=== PATIENT | female | born 1970 | race Caucasian/White ===

== ENCOUNTER 2016-07-18 15:23 | Emergency (ER) | payer SELFPAY ==
[2016-07-18 15:57] VITALS: BP 123/70
--- NOTE | 2016-07-18 17:34 | UC ---
Hand/Wrist HPI - HPI Summary HPI Summary: 3 days ago pt was screwing cap onto laboratory equipment using a strong bean dumper and felt a twinge in her palm near the base of her R thumb. Since then has had a mild bruised sensation in the soft area between her R thumb and her R hand and marked swelling. Denies any weakness or pain in thumb joint or with thumb movement. - History Of Current Complaint Chief Complaint: UCUpperExtremity Stated Complaint: HAND,THUMB INJURY Time Seen by Provider: 07/18/16 16:35 Hx Obtained From: Patient ?: No Onset/Duration: Sudden Onset, Still Present Severity Initially: Mild Severity Currently: Mild Character Of Pain: Dull, Aching Aggravating Factor(s): Other - pressing on area Associated Signs And Symptoms: Positive: Swelling Related History: Dominant Hand Right - Allergies/Home Medications Allergies/Adverse Reactions: Allergies Allergy/AdvReac Type Severity Reaction Status Date / Time Sulfa Drugs Allergy Severe Rash Verified 07/18/16 15:58 Amoxicillin [From Augmentin] Allergy Unknown See Comment Verified 07/18/16 15:58 Clavulanic Acid Allergy Unknown See Comment Verified 07/18/16 15:58 [From Augmentin] Gluten Meal AdvReac Severe See Comment Verified 07/18/16 15:58 PMH/Surg Hx/FS Hx/Imm Hx Endocrine History Of: Denies: Diabetes, Thyroid Disease Cardiovascular History Of: Denies: Cardiac Disorders, Hypertension, Pacemaker/ICD, Congestive Heart Failure Respiratory History Of: Denies: COPD, Asthma GI/ History Of: Denies: Ulcer, Renal Disease - Surgical History Surgical History: Yes Surgery Procedure, Year, and Place: C-SECT X 3, LEFT KN, ABD LAP, OOPHRECTOMY - Family History Known Family History: Positive: Unknown - adopted - Social History Occupation: Employed Full-time Alcohol Use: Rare Substance Use Type: None Smoking Status (MU): Never Smoked Tobacco Have You Smoked in the Last Year: No - Immunization History Most Recent Influenza Vaccination: 2014 Most Recent Pneumonia Vaccination: 2008 Review of Systems Constitutional: Negative Skin: Negative Eyes: Negative ENT: Negative Respiratory: Negative Cardiovascular: Negative Gastrointestinal: Negative Genitourinary: Negative Motor: Negative Neurovascular: Negative Musculoskeletal: Edema - R hand Neurological: Negative Psychological: Negative All Other Systems Reviewed And Are Negative: Yes Physical Exam Triage Information Reviewed: Yes Appearance: Well-Appearing, No Pain Distress, Well-Nourished Vital Signs: Initial Vital Signs Temp 98.8 F 07/18/16 15:51 Pulse 76 07/18/16 15:51 Resp 16 07/18/16 15:51 BP 123/70 07/18/16 15:51 Pulse Ox 100 07/18/16 15:51 Vital Signs Reviewed: Yes Eye Exam: Normal, Other - PERRL Eyes: Positive: Conjunctiva Clear ENT Exam: Normal ENT: Positive: Normal ENT inspection, Hearing grossly normal, Pharynx normal, TMs normal. Negative: Tonsillar swelling Dental Exam: Other - dentures Neck exam: Normal Respiratory Exam: Normal Respiratory: Positive: Chest non-tender, Lungs clear, Normal breath sounds, No respiratory distress, No accessory muscle use Cardiovascular Exam: Normal Cardiovascular: Positive: RRR, No Murmur Musculoskeletal Exam: Other - Full bean dumper and thumb opposition strength in R hand. No thumb ligament instability noted. Musculoskeletal: Positive: Strength Intact, ROM Intact Neurological Exam: Normal Neurological: Positive: Alert Psychological Exam: Normal Skin Exam: Normal Hand/Wrist Course/Dx - Differential Dx/Diagnosis Provider Diagnoses: R hand soft tissue injury Discharge - Discharge Plan Condition: Stable Disposition: HOME Patient Education Materials: Swollen Joint (ED) Forms: *Work Release Additional Instructions: As we discussed, I am not certain what has caused the swelling in your hand. However, the lack of pain and your good strength is reassuring to me that you don't have a serious injury. Most soft-tissue problems will get better with time and protection, so try wearing the splint for the next week (you can take it off sooner if you are completely resolved). If you still have marked swelling , or if you have worsening symptoms, please arrange for follow-up with the orthopedics office listed here.
== END 2016-07-18 17:35 | disposition home or self-care (01) ==
LOC: UCEAST 15:23
DX: S69.91XA Unspecified injury of right wrist, hand and finger(s), initial encounter (principal); X58.XXXA Exposure to other specified factors, initial encounter; Y93.89 Activity, other specified; Y92.9 Unspecified place or not applicable; Z88.1 Allergy status to other antibiotic agents; Z88.2 Allergy status to sulfonamides
CPT/HCPCS: 99212; G0463

== ENCOUNTER 2017-01-08 16:41 | Emergency (ER) | payer BC, OTHER ==
[2017-01-08 16:48] VITALS: BP 110/69
--- NOTE | 2017-01-08 18:18 | UC ---
Ear Complaint HPI - HPI Summary HPI Summary: This is a 46 yo female with c/o R ear pain that became more severe this am, but sxs have been present for ~3d. She has assoc ST and neck pain with nasal congestion. She has also been hoarse for the last day or so. She denies cough or SOB. Mild nausea, but no v/d. No fevers. She has been using benadryl at night without relief. - History of Current Complaint Chief Complaint: UCGeneralIllness Stated Complaint: EAR AND NECK PAIN - Allergies/Home Medications Allergies/Adverse Reactions: Allergies Allergy/AdvReac Type Severity Reaction Status Date / Time Sulfa Drugs Allergy Severe Rash Verified 01/08/17 16:49 Amoxicillin [From Augmentin] Allergy Unknown See Comment Verified 01/08/17 16:49 Clavulanic Acid Allergy Unknown See Comment Verified 01/08/17 16:49 [From Augmentin] Gluten Meal AdvReac Severe See Comment Verified 01/08/17 16:49 PMH/Surg Hx/FS Hx/Imm Hx Previously Healthy: No - chronic pain - Surgical History Surgical History: Yes Surgery Procedure, Year, and Place: C-SECT X 3, LEFT KN, ABD LAP, OOPHRECTOMY - Family History Known Family History: Positive: Unknown - adopted - Social History Alcohol Use: None Substance Use Type: None Smoking Status (MU): Never Smoked Tobacco Have You Smoked in the Last Year: No - Immunization History Most Recent Influenza Vaccination: 2014 Most Recent Pneumonia Vaccination: 2008 Review of Systems Constitutional: Negative Skin: Negative Eyes: Negative ENT: Sore Throat, Ear Ache, Sinus Congestion Respiratory: Negative Cardiovascular: Negative Gastrointestinal: Negative Genitourinary: Negative Motor: Negative Neurovascular: Negative Musculoskeletal: Negative Neurological: Negative Psychological: Negative Is Patient Immunocompromised?: No All Other Systems Reviewed And Are Negative: Yes Physical Exam Triage Information Reviewed: Yes Appearance: Ill-Appearing - mildly Vital Signs: Initial Vital Signs Temp 97.9 F 01/08/17 16:44 Pulse 95 01/08/17 16:44 Resp 18 01/08/17 16:44 BP 110/69 01/08/17 16:44 Pulse Ox 98 01/08/17 16:44 ENT: Positive: Pharynx normal. Negative: TMs normal - serous effusion with mild retraction and some scarring noted, TM red, Tonsillar swelling, Tonsillar exudate Dental: Positive: Percussion Tenderness @ - mild TTP over R maxillary sinus Neck: Positive: Supple, Enlarged Nodes @ - R anterior cervical LAD Respiratory: Positive: Lungs clear, Normal breath sounds. Negative: Crackles, Rhonchi, Wheezing Cardiovascular: Positive: RRR, No Murmur Abdomen Description: Positive: Nontender, Soft Musculoskeletal Exam: Normal Neurological: Positive: Alert Psychological Exam: Normal Psychological: Positive: Normal Response To Family Skin Exam: Normal Skin: Negative: rashes Ear Complaint Course/Dx - Course Course Of Treatment: This is a 46 yo female with c/o R ear pain with assoc ST and congestion. Noted serous effusion and nasal congestion. Treat for a viral syndrome, recommend decongestant use. - Differential Dx/Diagnosis Differential Diagnosis/HQI/PQRI: Otitis Externa, Otitis Media, Pharyngitis, URI Provider Diagnoses: 1. Serous otitis media. 2. Viral URI Discharge - Discharge Plan Condition: Stable Disposition: HOME Patient Education Materials: Serous Otitis Media (ED) Referrals: Christopher Ramey DO [Primary Care Provider] - If Needed Additional Instructions: Instructions: 1. Cont benadryl at night, use Sudafed for daytime use 2. Use Afrin nasal spray for additional nasal decongestion 3. Use ibuprofen and/or tylenol for pain relief
== END 2017-01-08 18:16 | disposition home or self-care (01) ==
LOC: UCEAST 16:41
DX: H65.90 Unspecified nonsuppurative otitis media, unspecified ear (principal); J06.9 Acute upper respiratory infection, unspecified; G89.29 Other chronic pain; Z88.3 Allergy status to other anti-infective agents; Z88.2 Allergy status to sulfonamides
CPT/HCPCS: 99211; G0463

== ENCOUNTER 2017-02-09 09:06 | Emergency (ER) | payer SELFPAY ==
[2017-02-09 09:18] VITALS: BP 123/77
[2017-02-09] MEDS ORDERED: Ketorolac INJ* 30 MG/ML 1 ML VIAL IM ONE (09:32)
--- NOTE | 2017-02-09 09:41 | UC ---
Hand/Wrist HPI - HPI Summary HPI Summary: 46 yo female with burn to right index finger at work this AM (about 8:30) when she grabbed a hot plate She is right handed unsure of last tetanus pain 12/30 if not cooled - History Of Current Complaint Chief Complaint: UCBurn Stated Complaint: BURN TO FINGER Time Seen by Provider: 02/09/17 09:26 Hx Obtained From: Patient Onset/Duration: Sudden Onset Severity Initially: Severe Severity Currently: Severe Pain Intensity: 10 Pain Scale Used: 0-10 Numeric Character Of Pain: Burning Alleviating Factor(s): Ice Associated Signs And Symptoms: Positive: Swelling, Redness Related History: Occupational Injury, Dominant Hand Right - Allergies/Home Medications Allergies/Adverse Reactions: Allergies Allergy/AdvReac Type Severity Reaction Status Date / Time Sulfa Drugs Allergy Severe Rash Verified 02/09/17 09:19 Amoxicillin [From Augmentin] Allergy Unknown See Comment Verified 02/09/17 09:19 Clavulanic Acid Allergy Unknown See Comment Verified 02/09/17 09:19 [From Augmentin] Gluten Meal AdvReac Severe See Comment Verified 02/09/17 09:19 Home Medications: Home Medications oxyCODONE SR TAB(*) [Oxycontin 10 mg (*)] 15 mg PO Q12HR 02/09/17 [History Confirmed 02/09/17] PMH/Surg Hx/FS Hx/Imm Hx Previously Healthy: Yes - Chronic pain - on daily opiates GI/ History: Other Other GI/ History: celiac disease - Surgical History Surgical History: Yes Surgery Procedure, Year, and Place: C-SECT X 3, LEFT KN, ABD LAP, OOPHRECTOMY - Family History Known Family History: Positive: Unknown - adopted - Social History Alcohol Use: Rare Substance Use Type: None Smoking Status (MU): Never Smoked Tobacco Have You Smoked in the Last Year: No - Immunization History Most Recent Influenza Vaccination: 2016 Most Recent Tetanus Shot: unsure Most Recent Pneumonia Vaccination: 2009 Review of Systems Constitutional: Negative Skin: Negative Eyes: Negative ENT: Negative Respiratory: Negative Cardiovascular: Negative Gastrointestinal: Negative Genitourinary: Negative Motor: Negative Neurovascular: Negative Musculoskeletal: Negative Neurological: Negative Psychological: Negative Is Patient Immunocompromised?: No All Other Systems Reviewed And Are Negative: Yes Physical Exam Triage Information Reviewed: Yes Appearance: Well-Appearing, Well-Nourished, Pain Distress Vital Signs: Initial Vital Signs Temp 98.1 F 02/09/17 09:13 Pulse 95 02/09/17 09:13 Resp 16 02/09/17 09:13 BP 123/77 02/09/17 09:13 Pulse Ox 100 02/09/17 09:13 Vital Signs Reviewed: Yes Eyes: Positive: Conjunctiva Clear ENT: Positive: Hearing grossly normal. Negative: Nasal congestion, Nasal drainage, Trismus, Muffled voice, Hoarse voice, Dental tenderness Neck: Positive: Supple, Nontender Respiratory: Positive: Lungs clear, Normal breath sounds, No respiratory distress Cardiovascular: Positive: RRR, No Murmur Musculoskeletal: Positive: ROM Intact, Edema @ Neurological: Positive: Alert Psychological Exam: Normal Skin: Positive: Other - see image Hand/Wrist Course/Dx - Differential Dx/Diagnosis Provider Diagnoses: second degree burnett right index finger Discharge - Discharge Plan Condition: Stable Disposition: HOME Patient Education Materials: Second Degree Burn (ED) Forms: *Work Release Referrals: Christopher Ramey DO [Primary Care Provider] - Additional Instructions: when you get home immerse finger in cool water periodically until burn abates then use a non stick dressing recheck in AM to re assess extent of burn and work status advil or aleve Images Hands: 1 - second degree burn/blister intact 2 - second degree burn/blister intact
[2017-02-09] MEDS ORDERED: Tetan/Diph/Pertus SYR(Tdap)* 0.5 ML SYR(BOOSTRIX) use SYR IM ONE (09:42)
== END 2017-02-09 10:00 | disposition home or self-care (01) ==
LOC: UCEAST 09:06
DX: T23.221A Burn of second degree of single right finger (nail) except thumb, initial encounter (principal); T31.0 Burns involving less than 10% of body surface; X15.2XXA Contact with hotplate, initial encounter; Y93.9 Activity, unspecified; Y92.9 Unspecified place or not applicable; Y99.0 Civilian activity done for income or pay
CPT/HCPCS: 90472; 90715; 96372; 99211; G0463; J1885

== ENCOUNTER 2017-02-10 07:10 | Emergency (ER) | payer SELFPAY ==
[2017-02-10 07:23] VITALS: BP 105/70
[2017-02-10] MEDS ORDERED: Ketorolac INJ* 60 MG/2 ML VIAL IM ONE (08:01)
--- NOTE | 2017-02-15 22:30 | UC ---
Abel Rodriguez Gabriel, scribed for Yaz Talbert MD on 02/10/17 at 0757 . HPI BURN - HPI Summary HPI Summary: This patient is a 46 year old F presenting to [facility] with a chief complaint of a burnt finger since yesterday. The burn is on her right hand which is the patients dominate hand. Thermal burn 2/2 hot plate at work. Returns for reevaluation and work note. Expresses concern about the ability to return to work with full use of finger while burn hurts this much. No p/d/w. No drainage. Reports that ketoralac injection helped, and would like it again if possible. No GI issues reported. - History of Current Complaint Chief Complaint: UCBurn Stated Complaint: BURN Time Seen by Provider: 02/10/17 07:51 Hx Obtained From: Patient Occurred: Days Ago - 1 Location: RUE - finger Alleviating Factor(s): Cool Soaks Occupational Injury: Yes - Allergy/Home Medications Allergies/Adverse Reactions: Allergies Allergy/AdvReac Type Severity Reaction Status Date / Time Sulfa Drugs Allergy Severe Rash Verified 02/10/17 07:23 Amoxicillin [From Augmentin] Allergy Unknown See Comment Verified 02/10/17 07:23 Clavulanic Acid Allergy Unknown See Comment Verified 02/10/17 07:23 [From Augmentin] Gluten Meal AdvReac Severe See Comment Verified 02/10/17 07:23 PMH/Surg Hx/FS Hx/Imm Hx Previously Healthy: Yes - Surgical History Surgical History: Yes Surgery Procedure, Year, and Place: C-SECT X 3, LEFT KN, ABD LAP, OOPHRECTOMY - Family History Known Family History: Positive: Unknown - Social History Alcohol Use: Rare Substance Use Type: None Smoking Status (MU): Never Smoked Tobacco Have You Smoked in the Last Year: No - Immunization History Most Recent Influenza Vaccination: 2016 Most Recent Tetanus Shot: unsure Most Recent Pneumonia Vaccination: 2009 Review of Systems Constitutional: Negative Skin: Other - burn on hand Eyes: Negative ENT: Negative Respiratory: Negative Cardiovascular: Negative Gastrointestinal: Negative Genitourinary: Negative Motor: Negative Neurovascular: Negative Musculoskeletal: Negative Neurological: Negative Psychological: Negative Is Patient Immunocompromised?: Yes All Other Systems Reviewed And Are Negative: Yes - Comments Additional Review of Systems Comments: See HPI Physical Exam Triage Information Reviewed: Yes Appearance: Well-Appearing, Other: - NAD Vital Signs: Initial Vital Signs Temp 97.7 F 02/10/17 07:18 Pulse 91 02/10/17 07:18 Resp 18 02/10/17 07:18 BP 105/70 02/10/17 07:18 Pulse Ox 99 02/10/17 07:18 Eye Exam: Normal ENT Exam: Normal Neck exam: Normal Respiratory Exam: Normal Respiratory: Positive: Other: - no dyspnea, no tachypnea, normal respiratory rate Cardiovascular Exam: Normal Cardiovascular: Positive: RRR, Other: - good general skin color, good capillary refill Abdominal Exam: Normal Abdomen Description: Positive: Nontender, No Organomegaly, Soft Bowel Sounds: Positive: Present Musculoskeletal Exam: Normal Musculoskeletal: Positive: Strength Intact Neurological Exam: Normal Neurological: Positive: Other: - nonfocal, grossly intact Psychological Exam: Normal - Normal: conversing easily and appropriately Skin Exam: Other - Burn on radial part of right finger that is 4 cm long and 1 cm wide Skin: Positive: Other - no visible or reported rash Burn Calculation - [place] Formula for Fluid Resuscitation Weight: 83.915 kg 24 -Hour Fluid Replacement: 0.0 Course/Dx Burn - Course Course Of Treatment: Reviewed wound care. D/w pt the need for f/u, laura if worse. Ketoralac x 1 here. Questions as posed answered to the best of my ability. - Diagnoses Clinic Provider Diagnoses: second degree finger burn, see above for details Discharge - Discharge Plan Condition: Stable Disposition: HOME Patient Education Materials: Second Degree Burn (ED) Forms: *Work Release Referrals: Christopher Ramey DO [Primary Care Provider] - Additional Instructions: Follow up with your primary care physician, per routine. Seek medical attention for worse or new problems in the meantime. Avoid astringents (no hydrogen peroxide, rubbing alcohol, avoid repeated use of neosporin, avoid inducing a "cold burn") The documentation as recorded by the Abel pedroza Gabriel accurately reflects the service I personally performed and the decisions made by me, Yaz Talbert MD.
== END 2017-02-10 08:17 | disposition home or self-care (01) ==
LOC: UCEAST 07:10
DX: T23.221A Burn of second degree of single right finger (nail) except thumb, initial encounter (principal); T31.0 Burns involving less than 10% of body surface; X15.2XXA Contact with hotplate, initial encounter; Y93.9 Activity, unspecified; Y92.89 Other specified places as the place of occurrence of the external cause; Y99.0 Civilian activity done for income or pay; Z88.1 Allergy status to other antibiotic agents; Z88.2 Allergy status to sulfonamides
CPT/HCPCS: 96372; 99211; G0463; J1885

== ENCOUNTER 2017-04-19 12:38 | Emergency (ER) | payer SELFPAY ==
[2017-04-19 14:12] VITALS: BP 131/84
--- NOTE | 2017-04-19 15:03 | UC ---
Throat Pain/Nasal Ramy HPI - HPI Summary HPI Summary: Pt presents with sinus pain/pressure/congestion, headache, and b/l ear pain for the last 3 days. Has been taking sudafed with no relief. Has not tried mucinex. Denies fever, chills, cough, SOB, chest pain, abdominal pain, n/v/d/c, or body aches. - History of Current Complaint Chief Complaint: UCGeneralIllness Stated Complaint: RESP COMPLAINT Time Seen by Provider: 04/19/17 15:03 Hx Obtained From: Patient Onset/Duration: Gradual Onset Severity: Mild Pain Intensity: 3 Pain Scale Used: 0-10 Numeric - Allergies/Home Medications Allergies/Adverse Reactions: Allergies Allergy/AdvReac Type Severity Reaction Status Date / Time Sulfa Drugs Allergy Severe Rash Verified 04/19/17 14:13 Amoxicillin [From Augmentin] Allergy Unknown See Comment Verified 04/19/17 14:13 Clavulanic Acid Allergy Unknown See Comment Verified 04/19/17 14:13 [From Augmentin] Gluten Meal AdvReac Severe See Comment Verified 04/19/17 14:13 Home Medications: Home Medications Pseudoephedrine HCL ER TAB* [Sudafed 12 Hour*] 1 tab PO Q12HR PRN 04/19/17 [ History Confirmed 04/19/17] PMH/Surg Hx/FS Hx/Imm Hx - Additional Past Medical History Additional PMH: Chronic pain Psychological History: Anxiety - Surgical History Surgical History: Yes Surgery Procedure, Year, and Place: C-SECT X 2, LEFT KNEE, ABD LAP, OOPHRECTOMY - Family History Known Family History: Positive: Unknown - Social History Occupation: Employed Full-time Lives: Alone Alcohol Use: Rare Substance Use Type: None Smoking Status (MU): Never Smoked Tobacco Have You Smoked in the Last Year: No - Immunization History Most Recent Influenza Vaccination: 2016 Most Recent Tetanus Shot: unsure Most Recent Pneumonia Vaccination: 2009 Review of Systems Constitutional: Negative Skin: Negative Eyes: Negative ENT: Ear Ache, Nasal Discharge, Sinus Congestion, Sinus Pain/Tenderness Respiratory: Cough Cardiovascular: Negative Gastrointestinal: Negative Neurovascular: Negative Musculoskeletal: Negative Neurological: Negative Psychological: Negative All Other Systems Reviewed And Are Negative: Yes Physical Exam Triage Information Reviewed: Yes Appearance: Well-Appearing, No Pain Distress, Well-Nourished Vital Signs: Initial Vital Signs Temp 97.1 F 04/19/17 14:07 Pulse 79 04/19/17 14:07 Resp 20 04/19/17 14:07 BP 131/84 04/19/17 14:07 Pulse Ox 100 04/19/17 14:07 Vital Signs Reviewed: Yes Eyes: Positive: Conjunctiva Clear. Negative: Conjunctiva Inflamed, Discharge ENT: Positive: Hearing grossly normal, Pharynx normal, Nasal congestion, Nasal drainage, TMs normal, Sinus tenderness, Uvula midline. Negative: Pharyngeal erythema, TM bulging, TM dull, TM red, Tonsillar swelling, Tonsillar exudate, Hoarse voice Neck: Positive: Supple, Nontender, No Lymphadenopathy Respiratory: Positive: Chest non-tender, Lungs clear, Normal breath sounds, No respiratory distress, No accessory muscle use Cardiovascular: Positive: RRR, No Murmur, Pulses Normal Neurological: Positive: Alert. Negative: Fatigued Psychological: Positive: Age Appropriate Behavior Skin: Negative: rashes Throat Pain/Nasal Course/Dx - Course Course Of Treatment: Sinusitis - Azithromycin - Differential Dx/Diagnosis Provider Diagnoses: Sinusitis Discharge - Discharge Plan Condition: Stable Disposition: HOME Prescriptions: Azithromycin TAB* [Zithromax TAB (Z-TIEN) 250 mg #6 tabs] 2 tab PO .TODAY, THEN 1 DAILY #1 tien Patient Education Materials: Sinusitis (ED) Referrals: Christopher Ramey DO [Primary Care Provider] - Additional Instructions: If you develop a fever, shortness of breath, chest pain, new or worsening symptoms - please call your PCP or go to the ED.
== END 2017-04-19 15:17 | disposition home or self-care (01) ==
LOC: UCEAST 12:38
DX: J32.9 Chronic sinusitis, unspecified (principal); G89.29 Other chronic pain; F41.9 Anxiety disorder, unspecified; Z88.2 Allergy status to sulfonamides; Z88.3 Allergy status to other anti-infective agents
CPT/HCPCS: 99212; G0463

== ENCOUNTER 2017-04-23 08:56 | Emergency (ER) | payer BC ==
[2017-04-23 09:25] VITALS: BP 113/72
[2017-04-23] MEDS ORDERED: Ketorolac INJ* 60 MG/2 ML VIAL IM ONE (09:48)
--- NOTE | 2017-04-24 18:47 | UC ---
Kev Rodriguez Nilda, scribed for Robert Garcia MD on 04/23/17 at 1027 . FLU HPI - HPI Summary HPI Summary: This patient is a 46 year old F presenting to [facility] with a chief complaint of constant flu-like symptoms for the past few days. The patient rates the pain 4/ 10 in severity. Symptoms aggravated and alleviated by nothing. Patient reports lower back pain that radiates down legs, mild headache, lightheadedness, and fatigue (sleeping for the past few days). Patient denies cough, urinary frequency, and dysuria. Pt states shes been on Zpack for sinus infection since with relief of sinus symptoms with exception of the headache. - History of Current Complaint Chief Complaint: UCGeneralIllness Stated Complaint: LIGHTHEADED, BODYACHES Time Seen by Provider: 04/23/17 09:28 Hx Obtained From: Patient Onset/Duration: Sudden Onset, Lasting Days, Still Present Severity Initially: Moderate Pain Intensity: 4 Pain Scale Used: 0-10 Numeric Associated Signs & Symptoms: Positive: Myalgia, Headache - Allergy/Home Medications Allergies/Adverse Reactions: Allergies Allergy/AdvReac Type Severity Reaction Status Date / Time MS Sulfa Drugs [Sulfa Drugs] Allergy Severe Rash Verified 04/23/17 09:25 MS Amoxicillin Allergy Unknown See Comment Verified 04/23/17 09:25 [From Augmentin] MS Clavulanic Acid Allergy Unknown See Comment Verified 04/23/17 09:25 [From Augmentin] MS Gluten Meal [Gluten Meal] AdvReac Severe See Comment Verified 04/23/17 09:25 PMH/Surg Hx/FS Hx/Imm Hx - Additional Past Medical History Additional PMH: costochondritis - Surgical History Surgical History: Yes Surgery Procedure, Year, and Place: C-SECT X 2, LEFT KNEE, ABD LAP, OOPHRECTOMY - Family History Known Family History: Positive: Unknown - pt is adopted - Social History Alcohol Use: Rare Substance Use Type: None Smoking Status (MU): Never Smoked Tobacco Have You Smoked in the Last Year: No - Immunization History Most Recent Influenza Vaccination: 2016 Most Recent Tetanus Shot: unsure Most Recent Pneumonia Vaccination: 2008 Review of Systems Constitutional: Fatigue Respiratory: Other - negative cough Genitourinary: Other - negative urinary frequency, dysuria Musculoskeletal: Other: - back pain radiating down legs Neurological: Headache, Other - lightheadedness All Other Systems Reviewed And Are Negative: Yes Physical Exam Triage Information Reviewed: Yes Vital Signs: Initial Vital Signs Temp 97.4 F 04/23/17 09:20 Pulse 82 04/23/17 09:20 Resp 18 04/23/17 09:20 BP 113/72 04/23/17 09:20 Pulse Ox 99 04/23/17 09:20 Vital Signs Reviewed: Yes - Additional Comments VITAL SIGNS: Reviewed. GENERAL: Patient is a well developed and nourished F who is lying comfortable in the stretcher. Patient is not in any acute respiratory distress. HEAD AND FACE: Normocephalic EYES: PERRLA, EOMI x 2. EARS: Hearing grossly intact. MOUTH: Oropharynx within normal limits. NECK: Supple, trachea is midline, no adenopathy, no JVD, no carotid bruit. CHEST: Symmetric, no tenderness at palpation LUNGS: Clear to auscultation bilaterally. No wheezing or crackles. CVS: Regular rate and rhythm, S1 and S2 present, no murmurs or gallops appreciated. ABDOMEN: Soft, non-tender. Bowel sounds are normal. No abdominal abnormal pulsations. EXTREMITIES: Full ROM in all major joints, no edema, no cyanosis or clubbing. Paraspinal muscle tenderness in lower spine. NEURO: Alert and oriented x 3. No acute neurological deficits. Speech is normal and follows commands. SKIN: Dry and warm Flu Course/Dx - Course Course Of Treatment: This patient is a 46 year old F presenting to [facility] with a chief complaint of constant flu-like symptoms for the past few days. The patient rates the pain 4/10 in severity. Symptoms aggravated and alleviated by nothing. Patient reports lower back pain that radiates down legs, mild headache , lightheadedness, and fatigue (sleeping for the past few days). Patient denies cough, urinal frequency, and dysuria. Pt states shes been on Zpack for sinus infection since 04/19/17 with relief of sinus symptoms with exception of the headache. Patient with multiple complaints. He has lower back pain and reports no trauma and no heavy lifting. She has no Bowel or urinary dysfunction. Pain is non radiating and she is 4/10 at . She was diagnosed with sinusitis and she finish taking Z holly. She requested a monospot test since her daughter wa diagnosed with mono. She denies any dysuria. In the UC she was given Toradol for pain. Monospot was send to the lab and it will f/u by PCP. UA was negative for UTI but had trace blood. Differential diagnosis could be and early UTI, cystitis, Kidney stone. However patient has bilateral lower back pain improved by Toradol. Rapid strep is negative and influenza A&B is negative. She will be discharged home with instruction that if pain increases she will return to the UC or go to the ED for further w/u and management. I discussed all the findings and test results with the patient and Patient was instructed to return to the UC or go to the ED if develops any fever, increase sore throat unable to swallow, drooling, unable to open their mouth, or any other symptoms. The patient understands and agrees. Plan of care was discussed with the patient and understands and agrees. All questions were answered at patient satisfaction. There were no further complaints or concerns. - Differential Dx/Diagnosis Differential Diagnosis/HQI/PQRI: Bronchitis, Influenza, Upper Respiratory Infection Provider Diagnoses: Back pain Discharge - Discharge Plan Condition: Stable Disposition: HOME Patient Education Materials: Lower Back Exercises (ED), Back Pain (ED) Referrals: No Primary Care Phys,NOPCP [Primary Care Provider] - The documentation as recorded by the Kev pedroza Nilda accurately reflects the service I personally performed and the decisions made by me, Robert Garcia MD.
== END 2017-04-23 10:53 | disposition home or self-care (01) ==
LOC: UCEAST 08:56
DX: M54.5 Low back pain (principal); R51 Headache; R42 Dizziness and giddiness; R53.83 Other fatigue; 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 junction syndrome [Tietze]; Z88.1 Allergy status to other antibiotic agents; Z88.2 Allergy status to sulfonamides
CPT/HCPCS: 36415; 81003; 86308; 86664; 86665; 87502; 87651; 96372; 99212; G0463; J1885

== ENCOUNTER 2017-04-24 07:10 | Emergency (ER) | payer BC ==
[2017-04-24] MEDS ORDERED: Ketorolac INJ* 30 MG/ML 1 ML VIAL IV ONE (07:22)
[2017-04-24] MEDS ORDERED: NS 0.9% 1000 ML* 1,000 ML IV ONE (07:22)
[2017-04-24 08:08] LABS: ABS Basophils 0 10^3/ul (0-0.2); ABS Eosinophils 0.1 10^3/ul (0-0.6); ABS Lymphocytes 2.2 10^3/ul (1.0-4.8); ABS Monocytes 0.3 10^3/ul (0-0.8); ABS Neutrophils 1.9 10^3/ul (1.5-7.7); ABS Nucleated RBC 0 10^3/ul; Eosinophil % 2.1 % (0-6); Hematocrit 38 % (35-47); Hemoglobin 12.9 g/dl (12.0-16.0); Lymphocyte % 48.6 % (25-47); Mean Corpuscular HGB Conc 34 g/dl (31-36); Mean Corpuscular Hemoglobin 30 pg (27-31); Mean Corpuscular Volume 87 fL (80-97); Mean Platelet Volume 9 um3 (7.4-10.4); Nucleated Red Blood Cells % 0; Platelet Count 183 10^3/ul (150-450); Red Blood Count 4.36 10^6/ul (4.0-5.4); Red Cell Distribution Width 14 % (10.5-15); White Blood Count 4.6 10^3/ul (3.5-10.8)
[2017-04-24 08:10] LABS: Urine Appearance Clear; Urine Blood Negative (Negative); Urine Color Yellow; Urine Ketones Negative (Negative); Urine Protein Negative (Negative); Urine Specific Gravity 1.021 (1.010-1.030); Urine Urobilinogen Negative (Negative)
--- NOTE | 2017-04-24 08:29 | RAD ---
INDICATION: Right flank pain COMPARISON: CT abdomen pelvis May 17, 2014 TECHNIQUE: Noncontrast axial source images were acquired from the level hemidiaphragms to the symphysis pubis as part of CT imaging for renal stone. Lung bases: The lung bases are clear. Liver: The liver is normal in size. Noncontrast imaging shows no evidence of a hepatic mass or ductal dilatation. Gallbladder: There are no calcified gallstones. There is no evidence of wall thickening or pericholecystic fluid.. Spleen: The spleen is normal in size. The noncontrast CT appearance is remarkable for splenic granulomas. Pancreas: Noncontrast imaging shows no pancreatic mass or ductal dilitation. Adrenal glands: No masses are identified. Kidneys/Bladder: There is a rounded renal parenchymal calcification in the lower pole of the anterior right kidney, unchanged. CT evidence of hydronephrosis. Noncontrast imaging shows no evidence of a renal mass. The bladder is unremarkable.. Adenopathy: There is no evidence of intraperitoneal or retroperitoneal adenopathy. Evaluation is limited without oral contrast. Fluid collections: There are no free or localized fluid collections. Vessels: The aorta and iliac vessels are normal in caliber. There are no significant atherosclerotic changes. The IVC appears normal Pelvic organs: The uterus and adnexa appear normal GI tract: Evaluation of the bowel is limited without oral contrast. The stomach, small bowel, and lower GI tract appear grossly normal. There are no obstructive findings. Soft tissues: No soft tissue abnormalities of the extraperitoneal abdomen or pelvis are identified. Osseous structures: There are no acute osseous findings. IMPRESSION: STABLE RENAL PARENCHYMAL CALCIFICATION. NO EVIDENCE OF OBSTRUCTIVE UROPATHY
[2017-04-24] MEDS ORDERED: Orphenadrine Citrate IV* 30 MG/ML 2 ML VIAL IV ONE (08:32)
[2017-04-24] MEDS ORDERED: Dexamethasone IV* 4 MG/ML 1 ML (4 MG) IV SLOW PU ONE (08:32)
[2017-04-24] MEDS ORDERED: Morphine INJ* 4 MG/ML 1 ML CARPUJECT IV ONE (08:32)
[2017-04-24 10:06] VITALS: BP 123/84
--- NOTE | 2017-04-24 14:46 | ED ---
Kev Rodriguez Nilda, scribed for Robert Garcia MD on 04/24/17 at 0934 . GI/ HPI - HPI Summary HPI Summary: This patient is a 46 year old F presenting to [facility] accompanied by with a chief complaint of constant R-flank pain that radiates to right lower back and RLE that worsened last night. Pt was seen at [facility] yesterday for the pain, which has worsened since. The patient rates the pain 6/10 in severity. Symptoms aggravated and alleviated by nothing. Patient reports nausea, but denies vomiting, diarrhea, and constipation. - History of Current Complaint Chief Complaint: EDFlankPain Time Seen by Provider: 04/24/17 07:22 Stated Complaint: RIGHT FLANK PAIN Hx Obtained From: Patient Onset/Duration: Started Days Ago, Still Present Timing: Constant Current Severity: Moderate Pain Intensity: 6 Location of Pain: Flank - right, radiates to right lower back and RLE Pain Characteristics: Sharp Associated Signs and Symptoms: Positive: Other: - nausea; denies vomiting, diarrhea, constipation Aggravating Factor(s): Nothing Alleviating Factor(s): Nothing - Allergy/Home Medications Allergies/Adverse Reactions: Allergies Allergy/AdvReac Type Severity Reaction Status Date / Time MS Sulfa Drugs [Sulfa Drugs] Allergy Severe Rash Verified 04/23/17 09:25 MS Amoxicillin Allergy Unknown See Comment Verified 04/23/17 09:25 [From Augmentin] MS Clavulanic Acid Allergy Unknown See Comment Verified 04/23/17 09:25 [From Augmentin] MS Gluten Meal [Gluten Meal] AdvReac Severe See Comment Verified 04/23/17 09:25 PMH/Surg Hx/FS Hx/Imm Hx Endocrine/Hematology History: Denies: Hx Diabetes, Hx Systemic Lupus Erythematosus, Hx Thyroid Disease Cardiovascular History: Denies: Hx Congestive Heart Failure, Hx Hypertension, Hx Pacemaker/ICD Respiratory History: Denies: Hx Asthma, Hx Chronic Obstructive Pulmonary Disease (COPD) GI History: Denies: Hx Ulcer History: Denies: Hx Dialysis, Hx Renal Disease Musculoskeletal History: Denies: Hx Rheumatoid Arthritis Sensory History: Denies: Hx Hearing Aid Psychiatric History: Denies: Hx Panic Disorder - Cancer History Cancer Type, 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 Hx Chemotherapy: No - Surgical History Surgery Procedure, Year, and Place: C-SECT X 2, LEFT KNEE, ABD LAP, OOPHRECTOMY Infectious Disease History: No Infectious Disease History: Denies: Hx Clostridium Difficile, Hx Hepatitis, Hx Human Immunodeficiency Virus (HIV), Hx of Known/Suspected MRSA, Hx Shingles, Hx Tuberculosis, Hx Known/ Suspected VRE, Hx Known/Suspected VRSA, History Other Infectious Disease, Traveled Outside the [place] in Last 30 Days - Family History Known Family History: Positive: None - reviewed and noncontributory - Social History Lives: With Family Alcohol Use: Occasionally Substance Use Type: Reports: Prescribed Smoking Status (MU): Never Smoked Tobacco Have You Smoked in the Last Year: No Review of Systems Positive: Nausea, Other - negative constipation. Negative: Vomiting, Diarrhea Positive: flank pain - right, radiates to right lower back and RLE All Other Systems Reviewed And Are Negative: Yes Physical Exam - Summary Physical Exam Summary: VITAL SIGNS: Reviewed. GENERAL: Patient is a well-developed and nourished female who is lying comfortable in the stretcher. Patient is not in any acute respiratory distress. HEAD AND FACE: No signs of trauma. No ecchymosis, hematomas or skull depressions. No sinus tenderness. EYES: PERRLA, EOMI x 2, No injected conjunctiva, no nystagmus. EARS: Hearing grossly intact. Ear canals and tympanic membranes are within normal limits. MOUTH: Oropharynx within normal limits. NECK: Supple, trachea is midline, no adenopathy, no JVD, no carotid bruit, no c- spine tenderness, neck with full ROM. CHEST: Symmetric, no tenderness at palpation LUNGS: Clear to auscultation bilaterally. No wheezing or crackles. CVS: Regular rate and rhythm, S1 and S2 present, no murmurs or gallops appreciated. ABDOMEN: Soft, non-tender. No signs of distention. No rebound no guarding, and no masses palpated. Bowel sounds are normal. EXTREMITIES: FROM in all major joints, no edema, no cyanosis or clubbing. Right CVA tenderness. NEURO: Alert and oriented x 3. No acute neurological deficits. Speech is normal and follows commands. SKIN: Dry and warm Triage Information Reviewed: Yes Vital Signs On Initial Exam: Initial Vitals Temp Pulse Resp BP Pulse Ox 97.4 F 86 18 144/62 98 04/24/17 07:12 04/24/17 07:12 04/24/17 07:12 04/24/17 07:12 04/24/17 07:12 Vital Signs Reviewed: Yes Diagnostics - Vital Signs Vital Signs Temp Pulse Resp BP Pulse Ox 04/24/17 09:26 16 04/24/17 07:56 80 95 04/24/17 07:55 121/80 04/24/17 07:12 97.4 F 86 18 144/62 98 - Laboratory Lab Results: Lab Results 04/24/17 04/24/17 04/24/17 Range/Units 07:40 07:40 07:40 WBC 4.6 (3.5-10.8) 10^3/ul RBC 4.36 (4.0-5.4) 10^6/ul Hgb 12.9 (12.0-16.0) g/dl Hct 38 (35-47) % MCV 87 (80-97) fL MCH 30 (27-31) pg MCHC 34 (31-36) g/dl RDW 14 (10.5-15) % Plt Count 183 (150-450) 10^3/ul MPV 9 (7.4-10.4) um3 Neut % (Auto) 40.8 (38-83) % Lymph % (Auto) 48.6 H (25-47) % [place] % (Auto) 7.6 (1-9) % Eos % (Auto) 2.1 (0-6) % Baso % (Auto) 0.9 (0-2) % Absolute Neuts (auto) 1.9 (1.5-7.7) 10^3/ul Absolute Lymphs (auto) 2.2 (1.0-4.8) 10^3/ul Absolute Monos (auto) 0.3 (0-0.8) 10^3/ul Absolute Eos (auto) 0.1 (0-0.6) 10^3/ul Absolute Basos (auto) 0 (0-0.2) 10^3/ul Absolute Nucleated RBC 0 10^3/ul Nucleated RBC % 0 Sodium 137 (133-145) mmol/L Potassium 3.9 (3.5-5.0) mmol/L Chloride 101 (101-111) mmol/L Carbon Dioxide 29 (22-32) mmol/L Anion Gap 7 (2-11) mmol/L BUN 18 (6-24) mg/dL Creatinine 0.77 (0.51-0.95) mg/dL Est GFR ( Amer) 102.9 (>60) Est GFR (Non-Af Amer) 80.0 (>60) BUN/Creatinine Ratio 23.4 H (8-20) Glucose 102 H (70-100) mg/dL Calcium 9.6 (8.6-10.3) mg/dL Total Bilirubin 0.30 (0.2-1.0) mg/dL AST 30 (13-39) U/L ALT 30 (7-52) U/L Alkaline Phosphatase 45 (34-104) U/L Total Creatine Kinase 83 (10-223) U/L C-Reactive Protein 1.69 (< 5.00) mg/L Total Protein 7.5 (6.4-8.9) g/dL Albumin 4.6 (3.2-5.2) g/dL Globulin 2.9 (2-4) g/dL Albumin/Globulin Ratio 1.6 (1-3) Lipase 22 (11.0-82.0) U/L Beta HCG, Quant 3.97 mIU/mL Urine Color Yellow Urine Appearance Clear Urine pH 5.0 (5-9) Ur Specific [place] 1.021 (1.010-1.030) Urine Protein Negative (Negative) Urine Ketones Negative (Negative) Urine Blood Negative (Negative) Urine Nitrate Negative (Negative) Urine Bilirubin Negative (Negative) Urine Urobilinogen Negative (Negative) Ur Leukocyte Esterase Negative (Negative) Urine Glucose Negative (Negative) Urine Ascorbic Acid * H (Negative) Result Diagrams: 04/24/17 07:40 04/24/17 07:40 Lab Statement: Any lab studies that have been ordered have been reviewed, and results considered in the medical decision making process. - CT Abd/Pel CT Interpretation Completed By: Radiologist - CT abd/Pel, per radiologist, reveals stable renal parenchymal calcification. No evidence of obstructive uropathy. Dr. Garcia has reviewed this radiology report. - EKG 731 Cardiac Rate: NL EKG Rhythm: Sinus Rhythm - 79 bpm EKG Interpretation: no ST elevatoin, nl axis GIGU Course/Dx - Course Assessment/Plan: This patient is a 46 year old F presenting to [facility] accompanied by with a chief complaint of constant R-flank pain that radiates to right lower back and RLE that worsened last night. Pt was seen at [facility] yesterday for the pain, which has worsened since. The patient rates the pain 6/10 in severity. Symptoms aggravated and alleviated by nothing. Patient reports nausea, but denies vomiting, diarrhea, and constipation. An EKG reveals NSR 79 bpm, without ST elevations, nl axis. CT abd/Pel, per radiologist , reveals stable renal parenchymal calcification. No evidence of obstructive uropathy. Dr. Garcia has reviewed this radiology report. In the ED course, the patient was given Decadron, Toradol, Morphine, IV fluids, and Norflex for the back pain. I believe she has bam pain and sciatic pain. The pt is hemodynamically stable, alert and oriented x3. Pt will be D/C with Dx of back pain, flank pain, and sciatica. At this point I discussed all the findings and test results with the patient. Patient was instructed to return to the emergency room immediately if any of the symptoms return or worsens. Patient understands and agrees. Patient is able to ambulate freely w/o aid or limp in the ER. Plan of care was discussed with the patient and patient understands and agrees. All questions were answered at patient satisfaction. There were no further complaints or concerns. Neurological exam before discharge: Patient is alert and oriented x 3. No acute neurological deficits. Patient is hemodynamically stable. Patient is to follow up with primary care physician in the next 2 3 days. He understands and agrees. - Diagnoses Differential Diagnoses - Female: Urinary Tract Infection, Ureteral Calculi Provider Diagnoses: Back pain, Sciatica, Flank pain Discharge - Discharge Plan Condition: Stable Disposition: HOME Prescriptions: HYDROcodone/ACETAMIN 5-325 MG* [Pedro 5-325 TAB*] 1 tab PO Q6H PRN #12 tab MDD 4 PRN Reason: Pain Methocarbamol [Robaxin-750 MG TAB] 750 mg PO TID #12 tab Methylprednisolone [Medrol Dosepak 4 MG*] 0 mg PO .SEE TIEN INSTRUCTION #1 tien Patient Education Materials: Sciatica (ED), Flank Pain (ED), Back Pain (ED) Forms: *Work Release Referrals: [facility] [Outside] No Primary Care Phys,NOPCP [Primary Care Provider] - Additional Instructions: RETURN TO THE EMERGENCY DEPARTMENT FOR CHANGING OR WORSENING SYMPTOMS. The documentation as recorded by the scribKev davis Nilda accurately reflects the service I personally performed and the decisions made by me, Robert Garcia MD.
== END 2017-04-24 10:05 | disposition home or self-care (01) ==
LOC: ED 07:10
DX: R10.84 Generalized abdominal pain (principal); R11.0 Nausea; R19.7 Diarrhea, unspecified; M54.9 Dorsalgia, unspecified; M54.30 Sciatica, unspecified side
CPT/HCPCS: 36415; 74176; 80053; 81003; 82550; 83690; 84702; 85025; 86140; 93005; 96374; 96375; 99284; J1100; J1885; J2270; J2360

== ENCOUNTER 2017-08-21 18:44 | Emergency (ER) | payer BC ==
--- NOTE | 2017-08-21 21:08 | RAD ---
HISTORY: Left leg swelling TECHNIQUE: Multiple transverse and longitudinal ultrasound images were obtained of the veins of the left lower extremity using grayscale, color Doppler, and spectral Doppler imaging with and without compression and with augmentation. FINDINGS: VEINS: The common femoral vein, deep femoral vein, femoral vein and popliteal vein are compressible throughout their course, with normal flow on color Doppler imaging and normal response to augmentation on spectral Doppler imaging. SOFT TISSUES: Grossly normal. No large popliteal fossa cyst was identified. IMPRESSION: No sonographic evidence of deep vein thrombosis.
[2017-08-21 21:58] VITALS: BP 129/81
--- NOTE | 2017-08-21 21:58 | ED ---
Jerzy Rodriguez Rebecca, scribed for Niko Blevins MD on 08/21/17 at 2012 . Lower Extremity - HPI Summary HPI Summary: Pt is a 46 y/o F who presents to ED c/o LLE swelling since yesterday. Associated pain is located behind the left knee and on triage was mild, ranked 2 /10. Negative trauma. Sx aggravated and alleviated by nothing. 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 Is not on blood thinners and takes oxycodone for chest pain. PSHx oophorectomy (15 years ago) after which she went into cardiac arrest. Negative PMHx DVT or PE. - History of Current Complaint Chief Complaint: EDGeneral Stated Complaint: LT LEG SWOLLEN Hx Obtained From: Patient Onset of Pain: Days - Yesterday, Prior to Arrival Onset/Duration: Still Present Severity Currently: Mild Pain Intensity: 2 Pain Scale Used: 0-10 Numeric Location: Is Discrete @ - Pain behind the left knee Associated Signs And Symptoms: Positive: Swelling - LLE swelling Aggravating Factor(s): Nothing Alleviating Factor(s): Nothing - Allergies/Home Medications Allergies/Adverse Reactions: Allergies Allergy/AdvReac Type Severity Reaction Status Date / Time amoxicillin [From Augmentin] Allergy See Comment Verified 08/21/17 20:23 clavulanic acid Allergy See Comment Verified 08/21/17 20:23 [From Augmentin] gluten Allergy See Comment Verified 08/21/17 20:23 Sulfa (Sulfonamide Allergy Rash Verified 08/21/17 20:21 Antibiotics) Home Medications: Home Medications ALPRAZolam TAB* [Xanax TAB*] 0.25 mg PO Q8H PRN MDD 3 tabs 08/21/17 [History Confirmed 08/21/17] Zolpidem TAB* [Ambien TAB*] 10 mg PO BEDTIME PRN 08/21/17 [History Confirmed 04/09] oxyCODONE SR TAB(*) [Oxycontin 10 mg (*)] 15 mg PO Q12H PRN MDD 2 08/21/17 [ History Confirmed 08/21/17] oxyCODONE SR TAB(*) [Oxycontin 20 mg (*)] 30 mg PO BEDTIME PRN MDD 1 tab [History Confirmed 08/21/17] oxyCODONE TAB* [Roxycodone TAB 5 mg*] 5 - 10 mg PO Q8H PRN MDD 4 08/21/17 [ History Confirmed 08/21/17] PMH/Surg Hx/FS Hx/Imm Hx Endocrine/Hematology History: Denies: Hx Diabetes, Hx Systemic Lupus Erythematosus, Hx Thyroid Disease Cardiovascular History: Reports: Other Cardiovascular Problems/Disorders - Hx pericardial effusion Denies: Hx Congestive Heart Failure, Hx Hypertension, Hx Pacemaker/ICD Respiratory History: Denies: Hx Asthma, Hx Chronic Obstructive Pulmonary Disease (COPD) GI History: Reports: Other GI Disorders - Hx Celiac Disease Denies: Hx Ulcer History: Reports: Other Problems/Disorders - Hx ovarian cysts Denies: Hx Dialysis, Hx Renal Disease Musculoskeletal History: Denies: Hx Rheumatoid Arthritis Sensory History: Denies: Hx Hearing Aid Psychiatric History: Denies: Hx Panic Disorder - Cancer History Cancer Type, 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 Hx Chemotherapy: No - Surgical History Surgery Procedure, Year, and Place: C-SECT X 2, LEFT KNEE, ABD LAP, OOPHRECTOMY Infectious Disease History: No Infectious Disease History: Denies: Hx Clostridium Difficile, Hx Hepatitis, Hx Human Immunodeficiency Virus (HIV), Hx of Known/Suspected MRSA, Hx Shingles, Hx Tuberculosis, Hx Known/ Suspected VRE, Hx Known/Suspected VRSA, History Other Infectious Disease, Traveled Outside the [place] in Last 30 Days - Family History Known Family History: Positive: Unknown - Pt is adopted - Social History Alcohol Use: Occasionally Substance Use Type: Reports: Prescribed Smoking Status (MU): Never Smoked Tobacco Have You Smoked in the Last Year: No Review of Systems Positive: Chest Pain - chronic Positive: Other - LLE swelling, pain behind the left knee All Other Systems Reviewed And Are Negative: Yes Physical Exam - Summary Physical Exam Summary: Appearance: Well-appearing, Well-nourished, lying in bed comfortably Skin: Warm, dry, no obvious rash Eyes: sclera anicteric, no conjunctival pallor ENT: mucous membranes moist, pharynx appears normal Neck: Supple, nontender Respiratory: Clear to auscultation, no signs of respiratory distress Cardiovascular: Normal S1, S2. No murmurs. Normal distal pulses in tibial and radial bilaterally. Abdomen: Soft, nontender, normal active bowel sounds present Musculoskeletal: The left eleg is mildly swollen with no significant erythema and no change in temperature versus the right. The left knee is normal with no effusion. The popliteal fossa is symmetric. Strength/ROM Intact Neurological: A&Ox3, awake and alert, mentation is normal, speech is fluent and appropriate Psychiatric: affect is normal, does not appear anxious or depressed Triage Information Reviewed: Yes Vital Signs On Initial Exam: Initial Vitals Temp Pulse Resp BP Pulse Ox 96.8 F 96 18 126/92 95 08/21/17 18:54 08/21/17 18:54 08/21/17 18:54 08/21/17 18:54 08/21/17 18:54 Vital Signs Reviewed: Yes Diagnostics - Vital Signs Vital Signs Temp Pulse Resp BP Pulse Ox 08/21/17 18:54 96.8 F 96 18 126/92 95 - Laboratory Lab Statement: Any lab studies that have been ordered have been reviewed, and results considered in the medical decision making process. - Ultrasound No standard instances Ultrasound Interpretation: No Acute Changes - Doppler: No sonographic evidence of deep vein thrombosis. ED physician reviewed this report. Ultrasound Interpretation Completed By: Radiologist Lower Extremity Course/Dx - Diagnoses Provider Diagnoses: Leg swelling Discharge - Sign-Out/Discharge Documenting (check all that apply): Discharge/Admit/Transfer - Discharge Plan Condition: Good Disposition: HOME Patient Education Materials: Leg Edema (ED) Referrals: No Primary Care Phys,NOPCP [Primary Care Provider] - - Billing Disposition and Condition Condition: GOOD Disposition: HOME The documentation as recorded by the Jerzy pedroza Rebecca accurately reflects the service I personally performed and the decisions made by me, Niko Blevins MD.
== END 2017-08-21 21:58 | disposition home or self-care (01) ==
LOC: ED 18:44
DX: R22.42 Localized swelling, mass and lump, left lower limb (principal); Z86.74 Personal history of sudden cardiac arrest; Z88.2 Allergy status to sulfonamides; Z88.3 Allergy status to other anti-infective agents
CPT/HCPCS: 99282

== ENCOUNTER 2017-09-18 10:42 | Emergency (ER) | payer BC ==
--- NOTE | 2017-09-18 11:40 | UC ---
Knee Pain HPI - HPI Summary HPI Summary: Patient is an otherwise healthy 46-year-old female presenting to the ED with chief complaint of left knee swelling and pain 1 month. She was seen in the ED 1 month ago for same complaint, however at that time she had diffuse tenderness throughout her leg with swelling and now it is localized to the left knee. DVT study obtained which shows negative for any blood clots one month ago. She states she injured the area 20 years ago and had a scope to the knee, but with no other repairs. He has been asymptomatic since that time. She denies any injury or trauma, however one month ago began to have swelling and pain. Symptoms are aggravated with flexion and full extension and better with rest and ice. Symptoms are worse upon getting out of bed in the morning and begin to alleviate throughout the day. No history of RA or OA. Denies any other joint aches or pains. She has been taking ibuprofen and icing the area without relief. Denies any erythema or warmth to the area. Denies any fevers, sweats, chills. Denies any hip pain or ankle pain. Pulses +2 intact bilaterally. Vital signs stable on arrival. - History of Current Complaint Chief Complaint: EDExtremityLower Stated Complaint: LT KNEE PAIN Time Seen by Provider: 09/18/17 10:50 Hx Obtained From: Patient ?: No Onset/Duration: Sudden Onset Severity Initially: Moderate Severity Currently: Moderate Pain Intensity: 6 Pain Scale Used: 0-10 Numeric Aggravating Factor(s): Movement, Weight Bearing Alleviating Factor(s): Rest, Position Associated Signs And Symptoms: Positive: Swelling Able to Bear Weight: Yes - Risk Factors Septic Arthritis Risk Factor: Negative Gout Risk Factor: Age ^ 40 - Allergies/Home Medications Allergies/Adverse Reactions: Allergies Allergy/AdvReac Type Severity Reaction Status Date / Time amoxicillin [From Augmentin] Allergy See Comment Verified 08/21/17 20:23 clavulanic acid Allergy See Comment Verified 08/21/17 20:23 [From Augmentin] gluten Allergy See Comment Verified 08/21/17 20:23 Sulfa (Sulfonamide Allergy Rash Verified 08/21/17 20:21 Antibiotics) PMH/Surg Hx/FS Hx/Imm Hx Previously Healthy: Yes - Surgical History Surgical History: Yes Surgery Procedure, Year, and Place: C-SECT X 2, LEFT KNEE, ABD LAP, OOPHRECTOMY - Family History Known Family History: Positive: None - reviewed and noncontributory , Unknown - Pt is adopted - Social History Occupation: Employed Full-time Lives: With Family Alcohol Use: Occasionally Substance Use Type: Prescribed Smoking Status (MU): Never Smoked Tobacco Have You Smoked in the Last Year: No - Immunization History Most Recent Influenza Vaccination: 2015 Most Recent Tetanus Shot: unsure Most Recent Pneumonia Vaccination: 2008 Review of Systems Constitutional: Negative Skin: Negative Respiratory: Negative Cardiovascular: Negative Motor: Negative Neurovascular: Negative Musculoskeletal: Arthralgia - with swelling to the Left knee Neurological: Negative Is Patient Immunocompromised?: No All Other Systems Reviewed And Are Negative: Yes Physical Exam Triage Information Reviewed: Yes Appearance: Well-Appearing, Well-Nourished Vital Signs: Initial Vital Signs Temp 97.8 F 09/18/17 10:44 Pulse 92 09/18/17 10:44 Resp 18 09/18/17 10:44 BP 118/73 09/18/17 10:44 Pulse Ox 97 09/18/17 10:44 Vital Signs Reviewed: Yes Eye Exam: Normal Eyes: Positive: Conjunctiva Clear Neck exam: Normal Neck: Positive: Supple, No Lymphadenopathy Respiratory Exam: Normal Respiratory: Positive: Chest non-tender Musculoskeletal: Positive: Strength Limited @ - left knee flexion d/t swelling Neurological Exam: Normal Neurological: Positive: Alert Psychological: Positive: Normal Response To Family Skin Exam: Normal Knee Pain Course/Dx - Course Course Of Treatment: On physical examination, patient appears in no acute distress. Left knee swelling suprapatellar and lateral. No erythema or warmth , no evidence of popliteal cyst, no tenderness to the ipsilateral calf. Homans sign negative. I discussed with the patient obtaining an x-ray. I do not believe this will show any acute or subacute pathologies since she remains ambulating well, however this is her second time for similar complaint and we' ll refer her to radiology and will want a radiograph to accompany. Anterior drawer negative. Chilango's not performed. Otherwise physical examination unremarkable. While pain worse in the morning which is alleviated throughout the day, no history or RA and symptoms are unilateral with only complaint of knee swelling and pain without other joint pains. No history of gout, denies redness and extreme pain. Pain is hovering around 2/10 and constant. Xray shows: Report: Mild tricompartmental osteophytosis. Mild medial and patellofemoral joint space. narrowing. Small joint effusion. No cortical disruption or suspicious trabecular. irregularity to suggest fracture. Mild anterior soft tissue swelling. IMPRESSION: #. Kellgren and Chris grade 2 osteoarthritis. Patient is made aware. Ibrahima wrap to to help with joint effusion. Patient is given referral to orthopedic clinic. Encouraged ibuprofen. - Differential Dx/Diagnosis Differential Diagnosis/HQI/PQRI: Sprain, Strain Provider Diagnoses: Osteoarthritis Discharge - Sign-Out/Discharge Documenting (check all that apply): Discharge/Admit/Transfer - Discharge Plan Condition: Stable Disposition: HOME Patient Education Materials: Osteoarthritis (ED) Referrals: No Primary Care Phys,NOPCP [Primary Care Provider] - Thanh Peñaloza MD [Medical Doctor] - Additional Instructions: Keep the area compressed with ibrahima bandage for comfort Ibuprofen 600mg three times daily x 3 days - do not exceed Ice Elevation Follow up with Ortho for further evaluation - Billing Disposition and Condition Condition: STABLE Disposition: Home
--- NOTE | 2017-09-18 12:39 | RAD ---
Indication: Multiple weeks LEFT knee swelling without proceeding injury. Comparison: No relevant prior exams available on the [facility] PACS for comparison. Technique: LEFT knee: AP, tunnel, lateral, sunrise views. Report: Mild tricompartmental osteophytosis. Mild medial and patellofemoral joint space narrowing. Small joint effusion. No cortical disruption or suspicious trabecular irregularity to suggest fracture. Mild anterior soft tissue swelling. IMPRESSION: #. Kellgren and Chris grade 2 osteoarthritis.
[2017-09-18 12:48] VITALS: BP 118/75
== END 2017-09-18 12:59 | disposition home or self-care (01) ==
LOC: ED 10:42
DX: M17.12 Unilateral primary osteoarthritis, left knee (principal); M25.762 Osteophyte, left knee; M25.462 Effusion, left knee
CPT/HCPCS: 99281

== ENCOUNTER 2018-04-09 13:36 | Day surgery (SDC) | payer BC ==
[~2018-04-09 13:36] MED LIST: Buffered Lidocaine 1% SYRIN* 1 ML/SYRINGE INTRADERM ONE; Lactated Ringers 1000 ML Bag* 1,000 ML IV SCH
[2018-04-09] MEDS ORDERED: Buffered Lidocaine 1% SYRIN* 1 ML/SYRINGE INTRADERM ONE (14:58)
[2018-04-09] MEDS ORDERED: ceFAZolin 2 GM PREMIX in ORs 2 GM/50 ML BAG IVPB ONE (14:58)
[2018-04-09] MEDS ORDERED: Bupivacaine 0.5% W/EPI SDV* 30 ML VIAL ONE (17:24)
[2018-04-09] MEDS ORDERED: EPINEPHRINE 1 MG/ML 1 ML VIAL ONE (17:24)
[2018-04-09] MEDS ORDERED: Midazolam* 1 MG/ML 5 ML VIAL (5 MG) ONE (17:36)
[2018-04-09] MEDS ORDERED: Chloroprocaine 2%* 20 ML VIAL ONE (17:56)
[2018-04-09] MEDS ORDERED: Dexamethasone IV* 4 MG/ML 1 ML (4 MG) ONE (17:59)
[2018-04-09] MEDS ORDERED: Ondansetron INJ* 2 MG/ML VIAL IV PRN (18:30)
[2018-04-09] MEDS ORDERED: DiMENhydriNATE IV* 50 MG/ML VIAL IV PUSH PRN (18:30)
[2018-04-09] MEDS ORDERED: Naloxone* 0.4 MG/ML 1 ML VIAL IV PRN (18:30)
[2018-04-09] MEDS ORDERED: fentaNYL* 50 MCG/ML 2 ML VIAL (100 MCG VIAL) ONE ×2 (18:36→19:14)
[2018-04-09] MEDS ORDERED: Ketorolac INJ* 30 MG/ML 1 ML VIAL ONE (18:45)
[2018-04-09] MEDS ORDERED: Ondansetron INJ* 2 MG/ML VIAL ONE (18:45)
[2018-04-09] MEDS ORDERED: oxyCODONE/Acetamin 5/325 MG* TAB ONE ×2 (19:14→20:00)
[2018-04-09] MEDS: fentaNYL* 50 MCG/ML 2 ML VIAL (100 MCG VIAL) IV PRN ×2 (19:15→19:25)
[2018-04-09] MEDS: oxyCODONE/Acetamin 5/325 MG* TAB PO PRN ×2 (19:16→20:03)
[2018-04-09 20:00] VITALS: BP 127/75
--- NOTE | 2018-04-12 00:23 | OP ---
DATE OF OPERATION: 04/09/18 - [facility] DATE OF : 66 SURGEON: Felice Rincon MD LOCOMOTIVE CRANE OPERATOR: BENJI Arauz. A physician residential real estate assistant was required for the length of procedure for assistance with positioning, instrumentation, closure. ANESTHESIOLOGIST: Dr. Anuj Larsen. ANESTHESIA: General anesthesia. PRE-OP DIAGNOSES: 1. Left knee effusion, persistent. 2. Possible left knee synovitis. POST-OP DIAGNOSES: 1. Left knee effusion, persistent. 2. Left knee synovitis, mild. 3. Left knee very low-grade articular cartilage changes, grade 1 of 4, of medial femoral condyle. OPERATIVE PROCEDURE: 1. Left knee diagnostic arthroscopy with arthroscopic biopsies of synovium. 2. Left knee arthroscopic limited synovectomy, suprapatellar, anterior. ANTIBIOTICS: Ancef 2 g IV. IV FLUIDS: 1000 cc crystalloid. TOURNIQUET TIME: 42 minutes at 300 mmHg. [id number] TIME: 39 minutes. SPECIMEN: Three specimens of synovium were obtained. The first was from the ligamentum mucosum and anterior synovium. The second was from suprapatellar pouch synovitis or synovium. The third was from some synovium just anterior to the PCL near its origin on the femur. IMPLANTS: None. ARTHROSCOPY FLUID UTILIZED: Not recorded. COMPLICATIONS: None. ESTIMATED BLOOD LOSS: None. 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 There was no specific antecedent trauma. The patient was followed by nm and treated with an aspiration, cortisone injection, ibuprofen. The patient's moderate- to-severe effusion persisted. Rheumatologic workup and infectious disease workup done by myself and the software program manager, Dr. Henriquez, revealed no clear cause of her persistent effusion. MRI showed no intra-articular de-arrangement that could be responsible for the effusion. The patient did have a history of left knee arthroscopy in [address] Henriquez recommended that I obtain a synovial biopsy to get some additional information that could determine why this patient's effusion persist. I was happy to do so. DESCRIPTION OF PROCEDURE: The patient signed a written consent in preoperative holding. I discussed the risks and potential complications of surgery with her. I marked the operative extremity in preoperative holding. The patient was taken back to the operating room and placed supine on the operating room table. The patient was sedated and intubated. The left lower extremity was prepped and draped. A lateral post had been placed about the outside of the operating room table. A tourniquet had been placed about the left proximal thigh. Surgical time-out performed. Esmarch applied and tourniquet elevated to 300 mmHg. Anterolateral knee arthroscopy portal established. No articular cartilage wear in the patellofemoral compartment noted, but there was some synovium, prolapsed into that compartment. I established an anteromedial knee arthroscopy portal to enter an arthroscopic shaver to debride some of this anterior synovitis to better allow me to drop down inferior in the knee. The patient did have an average synovitis about the anterior knee and a slightly more robust ligamentum mucosum than normally seen. Arthroscopic shaver was used to debride the anterior synovitis and ligamentum mucosum. I made an ancillary inferomedial portal. I used a grasper and an arthroscopic scissors to remove a piece of the anterior synovium and sent that to pathology. I inspected the intercondylar notch. ACL and PCL intact. I inspected the medial and lateral compartments. No meniscus tear. There was some diffuse grade 1 change to the medial femoral condyle, but otherwise the articular cartilage was excellent. At this point, I was also able to visualize better the patellofemoral compartment and articular cartilage looked excellent there as well. I moved up to the suprapatellar pouch. The patellofemoral compartment was more narrow even with the knee fully extended than is normally at a case. Therefore for good visualization proximally, I established multiple suprapatellar portals. I established 1 anterolateral and 2 anteromedial all superior portals. I took one sample of synovium using grasper and scissors, arthroscopic and I debrided some synovium and fat of the anterior aspect of the distal femur just proximal to the trochlear groove. This might have been slightly more developed than in the average knee that I scoped. I used an arthroscopic shaver and VAPR electrocautery to do this partial synovectomy in the suprapatellar pouch. I dropped down to the bottom of the knee. I then inspected the posteromedial portal. No abnormal looking synovium there. I took a third synovial sample with some synovium overlying the anterior aspect of the PCL near its proximal origin of the femur. I would say, that there was no discolored synovium anywhere in the knee and any of the compartment site examined. The synovium was little bit more developed, little bit more significant anteriorly and in the suprapatellar pouch than average but just slightly more than average. No clear pathologic synovium was encountered. I removed fluid and arthroscopic instruments from the knee. I closed the skin incisions with stitches using nylon 3- 0 suture. Xeroform, 4x4's, ABDs, sterile Webril, Ibrahima bandage from foot to proximal thigh. Patient was awakened, extubated, and transferred to the PACU. Tourniquet was dropped. DISPOSITION: The patient was discharged home when medically stable. She was provided with appropriate wound care instructions. She was given Percocet as needed for pain control and a short course of Keflex for 3 days for infection prophylaxis. She will also be on aspirin for 2 weeks b.i.d. for DVT prophylaxis. Patient will follow up with me 10 to 14 days postoperatively. She will start physical therapy immediately postoperatively. We will await pathology reports on the sample sent. [id number]/[facility] #: [id number] DEMARCUS
== END 2018-04-09 20:17 | disposition home or self-care (01) ==
LOC: OR 13:36
PROVIDERS: ATTEND Orthopaedic Surgery
DX: M65.862 Other synovitis and tenosynovitis, left lower leg (principal); M23.92 Unspecified internal derangement of left knee; M25.462 Effusion, left knee; K90.0 Celiac disease; F41.9 Anxiety disorder, unspecified
CPT/HCPCS: 88305; A9270-GY; J0690; J1100; J1885; J2250; J2400; J2405; J3010

== ENCOUNTER 2018-07-23 07:10 | Emergency (ER) | payer BC ==
[2018-07-23 07:21] VITALS: BP 127/67
--- NOTE | 2018-07-23 07:48 | UC ---
Ear Complaint HPI - HPI Summary HPI Summary: PAIN IN THE RIGHT EAR, ONSET LAST NIGHT OF RIGHT EAR PAIN. FEELS A LITTLE UNSTEADY AT TIMES BUT DENIES ACTUAL DIZZINESS. NO FEVER OR OTHER URI SYMPTOMS. - History of Current Complaint Chief Complaint: UCEar Stated Complaint: EAR PAIN Time Seen by Provider: 07/23/18 07:22 Hx Obtained From: Patient Onset/Duration: Gradual Onset, Lasting Hours, Still Present Severity Initially: Moderate Severity Currently: Moderate Pain Intensity: 3 Pain Scale Used: 0-10 Numeric Aggravating Factors: Other - pressure on tragus Alleviating Factors: Nothing Associated Signs/Symptoms: Negative: Discharge, Hearing Loss, Trauma to Ear, URI Symptoms - Allergies/Home Medications Allergies/Adverse Reactions: Allergies Allergy/AdvReac Type Severity Reaction Status Date / Time amoxicillin [From Augmentin] Allergy See Comment Verified 07/23/18 07:21 clavulanic acid Allergy See Comment Verified 07/23/18 07:21 [From Augmentin] gluten Allergy See Comment Verified 07/23/18 07:21 Sulfa (Sulfonamide Allergy Rash Verified 07/23/18 07:21 Antibiotics) PMH/Surg Hx/FS Hx/Imm Hx - Additional Past Medical History Additional PMH: CHRONIC PAIN - Surgical History Surgical History: Yes Surgery Procedure, Year, and Place: C-SECT X 2 1990, , [facility] [place]. LEFT KNEE - ARTHROSCOPIC , [facility] [place],1988. ABD LAP- EXPLORATORY & Rt OOPHRECTOMY. several surgerys form ovarian cyst and endometriosis - Family History Known Family History: Positive: Unknown - Pt is adopted - Social History Alcohol Use: Occasionally Alcohol Amount: 1 per month Substance Use Type: None Smoking Status (MU): Never Smoked Tobacco Have You Smoked in the Last Year: No - Immunization History Most Recent Influenza Vaccination: 2016 Most Recent Tetanus Shot: unsure Most Recent Pneumonia Vaccination: 2009 Review of Systems All Other Systems Reviewed And Are Negative: Yes Constitutional: Positive: Negative Skin: Positive: Negative Eyes: Positive: Negative ENT: Positive: Ear Ache Respiratory: Positive: Negative Cardiovascular: Positive: Negative Gastrointestinal: Positive: Negative Physical Exam Triage Information Reviewed: Yes Appearance: Well-Appearing, No Pain Distress, Well-Nourished Vital Signs: Initial Vital Signs Temp 97.5 F 07/23/18 07:15 Pulse 74 07/23/18 07:15 Resp 18 07/23/18 07:15 BP 127/67 07/23/18 07:15 Pulse Ox 98 07/23/18 07:15 Vital Signs Reviewed: Yes Eyes: Positive: Conjunctiva Clear ENT: Positive: Hearing grossly normal, Pharynx normal, Other - LEFT TM NORMAL. RIGHT TM OPAGUE INFERIORLY. NO PURULENCE OR EAC EDEMA. MILDLY TENDER OVER RIGHT TRAGUS Neck: Positive: Supple, Nontender, No Lymphadenopathy Respiratory: Positive: No respiratory distress, No accessory muscle use Cardiovascular: Positive: Pulses Normal Abdomen Description: Positive: Soft Musculoskeletal: Positive: No Edema Neurological: Positive: Alert Psychological: Positive: Age Appropriate Behavior Skin: Negative: Rashes Ear Complaint Course/Dx - Differential Dx/Diagnosis Provider Diagnosis: Acute effusion of right ear Discharge - Sign-Out/Discharge Documenting (check all that apply): Patient Departure All imaging exams completed and their final reports reviewed: No Studies - Discharge Plan Condition: Stable Disposition: HOME Prescriptions: Ciproflox/Dexameth OTIC.SUSP* [Ciprodex Otic*] 4 drop RIGHT EAR BID #1 bottle Patient Education Materials: Serous Otitis Media (ED) Referrals: Ovidio Duncan MD [Primary Care Provider] - If Needed Additional Instructions: FOLLOW-UP WITH ENT IF YOUR SYMPTOMS DO NOT IMPROVE IN A WEEK OR SO. [facility] [place] [address] [facility] [phone] - Billing Disposition and Condition Condition: STABLE Disposition: Home
== END 2018-07-23 07:40 | disposition home or self-care (01) ==
LOC: UCEAST 07:10
DX: H74.8X1 Other specified disorders of right middle ear and mastoid (principal); G89.29 Other chronic pain; Z88.1 Allergy status to other antibiotic agents; Z88.0 Allergy status to penicillin; Z88.2 Allergy status to sulfonamides
CPT/HCPCS: 99212; G0463

== ENCOUNTER 2019-01-23 08:54 | Emergency (ER) | payer BC ==
--- OUTSIDE RECORDS SUMMARY | 2019-01-23 08:59 | XMS REPORT | Continuity of Care Document ---
:1970 External Reference #:[id number] Author Name Ovidio Henriquez M.D. (transmitted by agent of provider Keeley Carvajal) Address [address] [place] [id number] Care Team Providers Name Role Phone Ovidio Duncan MD - Family Care Team Information Management Advisor Medicine Problems Active Problems Provider Date Premature beats Kevin Rosas M.D.,FACP Onset: 02/22/2007 Social History Type Date Description Comments Sex Unknown ETOH Use Occasionally consumes alcohol Tobacco Use Start: Unknown Patient has never smoked Smoking Status Reviewed: 01/19/19 Patient has never smoked Exercise Type/Frequency Exercises sporadically Allergies, Adverse Reactions, Alerts Active Allergies Reaction Severity Comments Date Sulfa Antibiotics 09/22/2017 Medications Active Medications SIG Qnty Indications Ordering Provider Date Alprazolam Take 1 Tablet By Unknown 0.25mg Mouth Every 8 Tablets Hours as Directed Oxycodone HCL Take 1-2 Tablets Unknown 5mg By Mouth Every 8 Tablets Hours as Directed Oxycontin Take 1 Tablet By Unknown 10mg Tab ER Mouth Every 12 12H Abuse-Det Hours as Directed Oxycontin Take 1 Tablet By Unknown 30mg Tab ER Mouth Every Day as 12H Abuse-Det Directed Zolpidem Tartrate Take 1 Tablet By Unknown 10mg Mouth Every Night Tablets AT Bedtime as Directed History Medications Enbrel inject the contents 11.76units M65.9 Ovidio Henriquez, 10/14/2018 - 50mg/ml of 1 syringe (50 M.D. 01/19/2019 Soln Prefill mg) under the skin Syringe once a week. single use syringe. refrigerate Plaquenil 1 by mouth every 45tabs M65.9 Ovidio Henriquez, 08/10/2018 - 200mg day for 1 week then M.D. 10/14/2018 Tablets 2 by mouth daily ongoing Medications Administered in Office Medication SIG Qnty Indications Ordering Provider Date Depomedrol 40MG Felice Rincon MD 07/28/2018 Injection No Injection Halley Marker, RPA-C 09/22/2017 Injection No Injection Halley Marker, RPA-C 09/22/2017 Injection Depomedrol 40MG Felice Rincon MD 09/22/2017 Injection Immunizations Description No Information Available Vital Signs Date Vital Result Comment 01/19/2019 3:44pm Height 67 inches 5'7" Weight 189.00 lb Heart Rate 94 /min BP Systolic Sitting 122 mmHg BP Diastolic Sitting 80 mmHg Pain Level 2 O2 % BldC Oximetry 99 % BMI (Body Mass Index) 29.6 kg/m2 11/23/2018 11:22am Height 67 inches 5'7" Weight 185.00 lb Heart Rate 76 /min BP Systolic 120 mmHg BP Diastolic 70 mmHg Respiratory Rate 12 /min Pain Level 0 BMI (Body Mass Index) 29.0 kg/m2 Results Test Acquired Date Facility Test Result H/L Range Note Laboratory test 10/12/2018 [facility] Erythrocyte Sed 9 mm/Hr Normal 0-[address] [place] [address] [phone] C Reactive Protein 2.08 mg/L Normal <8.01 CBC Auto 10/12/2018 [facility] White Blood 5.5 10^3/uL Normal 3.5-10.[address] [place] [address] [phone] Red Blood Count 4.10 10^6/uL Normal 3.70-4.87 Hemoglobin 11.9 g/dL Low 12.0-16.0 Hematocrit 36 % Normal 35-47 Mean Corpuscular Volume 87 fL Normal 80-97 Mean Corpuscular Hemoglobin 29 pg Normal 27-31 Mean Corpuscular HGB Conc 33 g/dL Normal 31-36 Red Cell Distribution Width 14 % Normal 10-15 Platelet Count 212 10^3/uL Normal 150-450 Mean Platelet Volume 9.3 fL Normal 7.4-10.4 Abs Neutrophils 3.3 10^3/uL Normal 1.5-7.7 Abs Lymphocytes 1.7 10^3/uL Normal 1.0-4.8 Abs Monocytes 0.4 10^3/uL Normal 0-0.8 Abs Eosinophils 0.1 10^3/uL Normal 0-0.6 Abs Basophils 0.1 10^3/uL Normal 0-0.2 Abs Nucleated RBC 0.0 10^3/uL Granulocyte % 60.0 % Lymphocyte % 31.1 % Monocyte % 6.4 % Eosinophil % 1.5 % Basophil % 1.0 % Nucleated Red Blood Cells % 0.1 Comp Metabolic 10/12/2018 [facility] Sodium 140 mmol/L Normal 135-[address] [place] [address] [phone] Potassium 4.3 mmol/L Normal 3.5-5.0 Chloride 105 mmol/L Normal 101-111 Co2 Carbon Dioxide 29 mmol/L Normal 22-32 Anion Gap 6 mmol/L Normal 2-11 Glucose 98 mg/dL Normal 70-100 Blood Urea Nitrogen 10 mg/dL Normal 6-24 Creatinine 0.79 mg/dL Normal 0.51-0.95 BUN/Creatinine Ratio 12.7 Normal 8-20 Calcium 9.5 mg/dL Normal 8.6-10.3 Total Protein 6.9 g/dL Normal 6.4-8.9 Albumin 4.4 g/dL Normal 3.2-5.2 Globulin 2.5 g/dL Normal 2-4 Albumin/Globulin Ratio 1.8 Normal 1-3 Total Bilirubin 0.30 mg/dL Normal 0.2-1.0 Alkaline Phosphatase 44 U/L Normal 34-104 Alt 13 U/L Normal 7-52 Ast 16 U/L Normal 13-39 Egfr Non- 77.4 >60 Egfr 93.6 >60 1 1 Because ethnic data is not always readily available, this report includes an eGFR for both -Americans and non- Americans. The National Kidney Disease Education Program (NKDEP) does not endorse the use of the MDRD equation for patients that are not between the ages of 18 and 70, are , have extremes of body size, muscle mass, or nutritional status, or are non- or non-. According to the National Kidney Foundation, irrespective of diagnosis, the stage of the disease is based on the level of kidney function: Stage Description GFR(mL/min/1.73 m(2)) 1 Kidney damage with normal or decreased GFR 90 2 Kidney damage with mild decrease in GFR 60-89 3 Moderate decrease in GFR 30-59 4 Severe decrease in GFR 15-29 5 Kidney failure <15 (or dialysis) Procedures Date Code Description Status 07/28/2018 84244 Inject/Drain Joint/Bursa Major W/O US Completed Medical Devices Description No Information Available Encounters Type Date Location Provider Dx Diagnosis Office Visit 11/23/2018 [facility] Felice Ahuja M65.9 Synovitis and 11:15a at Helen Rincon MD tenosynovitis, unspecified M25.462 Effusion, left knee M25.562 Pain in left knee Office Visit 10/14/2018 3:20p Rheumatology Ovidio Z79.899 [facility] Henriquez M.D. (current) drug therapy R79.82 Elevated C-reactive protein (CRP) K90.0 Celiac disease M25.469 Effusion, unspecified knee M70.50 Other bursitis of knee, unspecified knee Office Visit 08/10/2018 Rheumatology Ovidio M65.9 Synovitis and 3:20p Services Of Terence Henriquez M.D. tenosynovitis, unspecified Z79.899 [facility] (current) drug therapy R79.82 Elevated C-reactive protein (CRP) K90.0 Celiac disease Office Visit 07/28/2018 3:15p [facility] Felice Ahuja M25.562 Pain in at Helen Rincon MD left knee M25.462 Effusion, left knee Z47.89 Encounter for other orthopedic aftercare M65.9 Synovitis and tenosynovitis, unspecified Assessments Date Code Description Provider 01/19/2019 M25.462 Effusion, left knee Ovidio Henriquez M.D. 11/23/2018 M65.9 Synovitis and tenosynovitis, unspecified Felice Rincon MD 11/23/2018 M25.462 Effusion, left knee Felice Rincon MD 11/23/2018 M25.562 Pain in left knee Felice Rincon MD 10/14/2018 Z79.899 [facility] (current) drug therapy Ovidio Henriquez M.D. 10/14/2018 R79.82 Elevated C-reactive protein (CRP) Ovidio Henriquez M.D. 10/14/2018 K90.0 Celiac disease Ovidio Henriquez M.D. 10/14/2018 M25.469 Effusion, unspecified knee Ovidio Henriquez M.D. 10/14/2018 M70.50 Other bursitis of knee, unspecified knee Ovidio Henriquez M.D. 08/10/2018 M65.9 Synovitis and tenosynovitis, unspecified Ovidio Henriquez M.D. 08/10/2018 Z79.899 Other [employer] (current) drug therapy Ovidio Henriquez M.D. 08/10/2018 R79.82 Elevated C-reactive protein (CRP) Ovidio Henriquez M.D. 08/10/2018 K90.0 Celiac disease Ovidio Henriquez M.D. 07/28/2018 M25.562 Pain in left knee Felice Rincon MD 07/28/2018 M25.462 Effusion, left knee Felice Rincon MD 07/28/2018 Z47.89 Encounter for other orthopedic aftercare Felice Rincon MD 07/28/2018 M65.9 Synovitis and tenosynovitis, unspecified Felice Rincon MD Plan of Treatment 01/19/2019 - Ovidio Henriquez M.D.M25.462 Effusion, left kneeFollow up:Follow up in 1 year or sooner if needed Functional Status Description No Information Available Mental Status Description No Information Available Referrals Refer to Reason for Referral Status Appt Date Chito Escobar MD Please monitor for Plaquenil toxicity Sent [address] [place] [address] [phone]
--- OUTSIDE RECORDS SUMMARY | 2019-01-23 08:59 | XMS REPORT | Continuity of Care Document ---
:1970 External Reference #:[id number] Author Name Christopher Ramey DO, MPH Address [address] [place] [address], [address] [address] Care Team Providers Name Role Phone Sumeet Rosas RPA-C. - Physician Care Team Information Lead Slot Technician Environmental Services Aide Laney Daly M.D. - Cardiovascular Care Team Information Lead Slot Technician [phone] Disease Problems Description No Information Available Social History Type Date Description Comments Sex Unknown Tobacco Use Start: Unknown Patient has never smoked Smoking Status Reviewed: 12/02/18 Patient has never smoked Allergies, Adverse Reactions, Alerts Active Allergies Reaction Severity Comments Date Sulfa 02/20/2005 Medications Active Medications SIG Qnty Indications Ordering Provider Date Oxycontin take one tablet 60tabs Christopher Ramey DO, 03/10/2014 10mg Tab ER by mouth every 12 [facility] 12H Abuse-Det hours as directed chronic pain. Oxycontin si by mouth 30tabs Christopher Ramey DO, 07/11/2008 30mg Tab ER every day as MPH 12H Abuse-Det directed chronic pain patient Ambien si by mouth 30tabs Christopher Ramey DO, 07/06/2007 10mg Tablets every night at [facility]PH bedtime as directed Xanax si by mouth 90tabs Christopher Ramey DO, 06/04/2005 0.25mg Tablets every 8 hours as MPH directed chronic pain patient Oxycodone HCL si-2 by mouth 120tabs Christopher Ramey DO, 02/20/2005 5mg every 8 hours as MPH Tablets directed chronic pain patient History Medications Oxycodone HCL si by mouth 120tabs Christopher Ramey, 12/02/2018 - 5mg every 6 hours as DO, MPH 12/02/2018 Tablets directed chronic pain patient Oxycodone HCL si/2 to 1 by 60tabs Christopher Ramey, 11/03/2018 - 10mg mouth every 8 hours DO, MPH 12/02/2018 Tablets as directed chronic pain patient Immunizations Description No Information Available Vital Signs Date Vital Result Comment 12/02/2018 3:15pm BP Systolic 132 mmHg BP Diastolic 88 mmHg Heart Rate 86 /min Respiratory Rate 20 /min Height 67 inches 5'7" Weight 185.00 lb Pain Level 3 Pain at this time. Pain Level With Medicine 3 on average with meds Pain Level Without Medicine 9 without meds BMI (Body Mass Index) 29.0 kg/m2 11/02/2018 4:14pm BP Systolic 126 mmHg BP Diastolic 74 mmHg Heart Rate 76 /min Respiratory Rate 20 /min Height 67 inches 5'7" Weight 186.00 lb Pain Level 5 Pain at this time. Pain Level With Medicine 4 on average with meds Pain Level Without Medicine 9 without meds BMI (Body Mass Index) 29.1 kg/m2 Results Description No Information Available Procedures Date Code Description Status 11/02/2018 97445 Omt 5-6 Body Regions Completed 09/29/2018 00004 Omt 5-6 Body Regions Completed 09/29/2018 26089 Therapeutic, Prophylactic Or Diagnostic Injection Subq/Im Completed 09/02/2018 75174 Omt 5-6 Body Regions Completed 09/02/2018 98528 Therapeutic, Prophylactic Or Diagnostic Injection Subq/Im Completed 08/02/2018 43072 Omt 5-6 Body Regions Completed 08/02/2018 46594 Therapeutic, Prophylactic Or Diagnostic Injection Subq/Im Completed 06/30/2018 24352 Omt 5-6 Body Regions Completed Medical Devices Description No Information Available Encounters Type Date Location Provider Dx Diagnosis Office Visit 11/02/2018 Main Office as Of Christopher Ramey DO, G89.21 Chronic pain due 4:15p 04/23/13 MPH to trauma M54.2 Cervicalgia M99.01 Segmental and somatic dysfunction of cervical region M54.6 Pain in thoracic spine M99.02 Segmental and somatic dysfunction of thoracic region M54.5 Low back pain M99.03 Segmental and somatic dysfunction of lumbar region M53.3 Sacrococcygeal disorders, not elsewhere classified M99.04 Segmental and somatic dysfunction of sacral region Z79.891 retirement (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 opiate analgesic 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 junction syndrome [Tietze] M25.551 Pain in right hip M25.552 Pain in left hip M99.05 Segmental and somatic dysfunction of pelvic region Office Visit 09/29/2018 3:30p Main Office as Christopher Ramey G89.21 Chronic pain due Of 04/23/13 DO, MPH to trauma 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 junction syndrome [Tietze] M54.2 Cervicalgia M99.01 Segmental and somatic dysfunction of cervical region M54.6 Pain in thoracic spine M99.02 Segmental and somatic dysfunction of thoracic region M54.5 Low back pain M99.03 Segmental and somatic dysfunction of lumbar region M53.3 Sacrococcygeal disorders, not elsewhere classified M99.04 Segmental and somatic dysfunction of sacral region 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 R53.83 Other fatigue M25.551 Pain in right hip M25.552 Pain in left hip M99.05 Segmental and somatic dysfunction of pelvic region G47.8 Other sleep disorders F41.9 Anxiety disorder, unspecified Office Visit 09/02/2018 4:00p Main Office as Christopher Ramey, G89.21 Chronic pain due Of 04/23/13 DO, [facility]PH to trauma M54.2 Cervicalgia M99.01 Segmental and somatic dysfunction of cervical region M54.6 Pain in thoracic spine M99.02 Segmental and somatic dysfunction of thoracic region M54.5 Low back pain M99.03 Segmental and somatic dysfunction of lumbar region M53.3 Sacrococcygeal disorders, not elsewhere classified M99.04 Segmental and somatic dysfunction of sacral region R53.83 Other fatigue 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 M25.551 Pain in right hip M25.552 Pain in left hip M99.05 Segmental and somatic dysfunction of pelvic region Office Visit 08/02/2018 9:00a Main Office as Christopher Ramey G89.21 Chronic pain due Of 04/23/13 DO, MPH to trauma 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 junction syndrome [Tietze] M54.2 Cervicalgia M99.01 Segmental and somatic dysfunction of cervical region M54.6 Pain in thoracic spine M99.02 Segmental and somatic dysfunction of thoracic region M54.5 Low back pain M99.03 Segmental and somatic dysfunction of lumbar region M25.551 Pain in right hip M25.552 Pain in left hip R53.83 Other fatigue Z79.891 retirement (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 opiate analgesic M99.05 Segmental and somatic dysfunction of pelvic region M53.3 Sacrococcygeal disorders, not elsewhere classified M99.04 Segmental and somatic dysfunction of sacral region Office Visit 06/30/2018 4:15p Main Office as Christopher Ramey G89.21 Chronic pain due Of 04/23/13 DO MPH to trauma M54.2 Cervicalgia M99.01 Segmental and somatic dysfunction of cervical region M54.6 Pain in thoracic spine M99.02 Segmental and somatic dysfunction of thoracic region M54.5 Low back pain M99.03 Segmental and somatic dysfunction of lumbar region M53.3 Sacrococcygeal disorders, not elsewhere classified M99.04 Segmental and somatic dysfunction of sacral region R10.2 Pelvic and perineal pain M99.05 Segmental and somatic dysfunction of pelvic region Z79.891 retirement (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 opiate analgesic Assessments Date Code Description Provider 12/02/2018 G89.21 Chronic pain due to trauma Christopher Ramey DO, MPH 12/02/2018 M54.2 Cervicalgia Christopher Ramey DO, MPH 12/02/2018 M54.6 Pain in thoracic spine Christopher Ramey DO, MPH 12/02/2018 M54.5 Low back pain RameyChristopher sanon DO, MPH 12/02/2018 M53.3 Sacrococcygeal disorders, not elsewhere RameyChristopher sanon DO, MPH classified 12/02/2018 Z79.891 retirement (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 opiate analgesic Christopher Ramey DO, MPH 12/02/2018 R53.83 Other fatigue RameyChristopher sanon DO, MPH 11/02/2018 G89.21 Chronic pain due to trauma RameyChristopher sanon DO, MPH 11/02/2018 M54.2 Cervicalgia Ramey, Christopher, DO, MPH 11/02/2018 M99.01 Segmental and somatic dysfunction of Ramey, Christopher, DO, MPH cervical region 11/02/2018 M54.6 Pain in thoracic spine RameyChristopher sanon, DO, MPH 11/02/2018 M99.02 Segmental and somatic dysfunction of Ramey, Christopher, DO, MPH thoracic region 11/02/2018 M54.5 Low back pain Christopher Ramey, DO, MPH 11/02/2018 M99.03 Segmental and somatic dysfunction of lumbar Ramey, Christopher, DO, MPH region 11/02/2018 M53.3 Sacrococcygeal disorders, not elsewhere Ramey, Christopher, DO, MPH classified 11/02/2018 M99.04 Segmental and somatic dysfunction of sacral Ramey, Christopher, DO, MPH region 11/02/2018 Z79.891 retirement (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 opiate analgesic RameyTodd sanonph , DO, MPH 11/02/2018 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 junction syndrome [Tietze] Todd Rameyph, DO, MPH 11/02/2018 M25.551 Pain in right hip Ramey, Christopher, DO, MPH 11/02/2018 M25.552 Pain in left hip Ramey, Christopher, DO, MPH 11/02/2018 M99.05 Segmental and somatic dysfunction of pelvic RameyTodd sanonph, DO, MPH region 09/29/2018 G89.21 Chronic pain due to trauma RameyTodd sanonph, DO, MPH 09/29/2018 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 junction syndrome [Tietze] RameyTodd sanonph, DO, MPH 09/29/2018 M54.2 Cervicalgia Ramey, Christopher, DO, MPH 09/29/2018 M99.01 Segmental and somatic dysfunction of Ramey, Christopher, DO, MPH cervical region 09/29/2018 M54.6 Pain in thoracic spine RameyTodd sanonph, DO, MPH 09/29/2018 M99.02 Segmental and somatic dysfunction of Ramey, Christopher, DO, MPH thoracic region 09/29/2018 M54.5 Low back pain Ramey, Christopher, DO, MPH 09/29/2018 M99.03 Segmental and somatic dysfunction of lumbar Ramey, Christopher, DO, MPH region 09/29/2018 M53.3 Sacrococcygeal disorders, not elsewhere Ramey, Christopher, DO, MPH classified 09/29/2018 M99.04 Segmental and somatic dysfunction of sacral Ramey, Christopher, DO, MPH region 09/29/2018 Z79.891 retirement (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 opiate analgesic Ramey, Christopher , DO, MPH 09/29/2018 R53.83 Other fatigue Ramey, Christopher, DO, MPH 09/29/2018 M25.551 Pain in right hip Ramey, Christopher, DO, MPH 09/29/2018 M25.552 Pain in left hip Ramey, Christopher, DO, MPH 09/29/2018 M99.05 Segmental and somatic dysfunction of pelvic Ramey, Christopher, DO, MPH region 09/29/2018 G47.8 Other sleep disorders Ramey, Christopher, DO, MPH 09/29/2018 F41.9 Anxiety disorder, unspecified Ramey, Christopher, DO, MPH 09/02/2018 G89.21 Chronic pain due to trauma Ramey, Christopher, DO, MPH 09/02/2018 M54.2 Cervicalgia Ramey, Christopher, DO, MPH 09/02/2018 M99.01 Segmental and somatic dysfunction of Ramey, Christopher, DO, MPH cervical region 09/02/2018 M54.6 Pain in thoracic spine Ramey, Christopher, DO, MPH 09/02/2018 M99.02 Segmental and somatic dysfunction of Ramey, Christopher, DO, MPH thoracic region 09/02/2018 M54.5 Low back pain Ramey, Christopher, DO, MPH 09/02/2018 M99.03 Segmental and somatic dysfunction of lumbar Ramey, Christopher, DO, MPH region 09/02/2018 M53.3 Sacrococcygeal disorders, not elsewhere Ramey, Christopher, DO, MPH classified 09/02/2018 M99.04 Segmental and somatic dysfunction of sacral Ramey, Christopher, DO, MPH region 09/02/2018 R53.83 Other fatigue Ramey, Christopher, DO, MPH 09/02/2018 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 Ramey, Christopher , DO, MPH 09/02/2018 M25.551 Pain in right hip Ramey, Christopher, DO, MPH 09/02/2018 M25.552 Pain in left hip Ramey, Christopher, DO, MPH 09/02/2018 M99.05 Segmental and somatic dysfunction of pelvic Ramey, Christopher, DO, MPH region 08/02/2018 G89.21 Chronic pain due to trauma Ramey, Christopher, DO, MPH 08/02/2018 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 junction syndrome [Tietze] Ramey, Christopher, DO, MPH 08/02/2018 M54.2 Cervicalgia Ramey, Christopher, DO, MPH 08/02/2018 M99.01 Segmental and somatic dysfunction of Ramey, Christopher, DO, MPH cervical region 08/02/2018 M54.6 Pain in thoracic spine Ramey, Christopher, DO, MPH 08/02/2018 M99.02 Segmental and somatic dysfunction of Ramey, Christopher, DO, MPH thoracic region 08/02/2018 M54.5 Low back pain Ramey, Christopher, DO, MPH 08/02/2018 M99.03 Segmental and somatic dysfunction of lumbar Ramey, Christopher, DO, MPH region 08/02/2018 M25.551 Pain in right hip Ramey, Christopher, DO, MPH 08/02/2018 M25.552 Pain in left hip Ramey, Christopher, DO, MPH 08/02/2018 R53.83 Other fatigue Ramey, Christopher, DO, MPH 08/02/2018 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 Ramey, Christopher , DO, MPH 08/02/2018 M99.05 Segmental and somatic dysfunction of pelvic Ramey, Chrisotpher, DO, MPH region 08/02/2018 M53.3 Sacrococcygeal disorders, not elsewhere Ramey, Christopher, DO, MPH classified 08/02/2018 M99.04 Segmental and somatic dysfunction of sacral Ramey, Christopher, DO, MPH region 06/30/2018 G89.21 Chronic pain due to trauma Ramey, Christopher, DO, MPH 06/30/2018 M54.2 Cervicalgia Ramey, Christopher, DO, MPH 06/30/2018 M99.01 Segmental and somatic dysfunction of Christopher Ramey DO MPH cervical region 06/30/2018 M54.6 Pain in thoracic spine Christopher Ramey DO MPH 06/30/2018 M99.02 Segmental and somatic dysfunction of Christopher Ramey DO MPH thoracic region 06/30/2018 M54.5 Low back pain Christopher Ramey DO MPH 06/30/2018 M99.03 Segmental and somatic dysfunction of lumbar Christopher Ramey DO MPH region 06/30/2018 M53.3 Sacrococcygeal disorders, not elsewhere Christopher Ramey DO MPH classified 06/30/2018 M99.04 Segmental and somatic dysfunction of sacral Christopher Ramey DO MPH region 06/30/2018 R10.2 Pelvic and perineal pain Christopher Ramey DO MPH 06/30/2018 M99.05 Segmental and somatic dysfunction of pelvic Christopher Ramey DO MPH region 06/30/2018 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 Christopher Ramey DO MPH Plan of Treatment Future Appointment(s):01/03/2019 4:00 pm - Christopher Ramey DO MPH at Main Office as Of 04/23/1408 [facility] pain due to traumaComments:Chronic. Symptoms and complaints discussed and reviewed today. No significant changes in physical findings. Continue current medical pain management.M54.2 CervicalgiaComments:Chronic. Symptoms and complaints discussed and reviewed today. No significant changes in physical findings. Continue current medical pain management.M54.6 Pain in thoracic spineComments: Chronic.Symptoms and complaints discussed and reviewed today. No significant changes in physical findings. Continue current medical pain management.M54.5 Low back painComments:Chronic. Symptoms and complaints discussed and reviewed today.No changes in physical findings. Patient is stable and comfortable when current medical therapy is rendered.M53.3 Sacrococcygeal disorders, not elsewhere classifiedComments:Chronic. Symptoms and complaints discussed and reviewed today. Notable sacral somatic dysfunctions warranting OMT. Patient is stable and comfortable with current medical therapy.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New Labs:Urine Drug Screen, Ordered: 12/02/18Comments: Urine drug screen sample taken today to monitor opiate use and to monitor use of illicit substances.Will discuss results at next appointment.The following tests were ordered:6 AM, AMPH, BENTLEY, HI, BUP, CARIS, COCM, COT, ETG, FENT, MCSHSG, OPI, OXY, PCP, TAPEN, XTSY, ZOLP. A urine drug test (UDT) was ordered for this patient and collected on site today. Creatinine has been ordered as well for specimen validity, not for kidney function. Preliminary UDT results are not final and should not be used to determine patient care or plan of treatment. Initially a qualitative immunoassay screen will be done. Any inconsistent or positive findings will be further tested with a more comprehensive quantitative confirmation LCMS study. It is part of the treatment process of prescribing controlled substances and is considered standard of care.R53.83 Other fatigueComments:Symptoms and complaints discussed and reviewed today. No significant changes in physical findings. Continue current medical pain management. B12 injection administered after patient evaluated. 1ml IM for fatigue. (See Consent for injection-B12 document for lot number and expiration date.)AllNew Medication:Oxycodone HCL 5 mg - si by mouth every 6 hours as directed chronic pain patientComments:Continue current medical pain management; injection therapy, osteopathic manipulation, PT / modalities, and consults as needed to manage chronic pain.Non - opioid pain management discussed and optionsdiscussed.Side effects discussed; anticipatory guidance given. Patient clearly understand and agree with all medical treatments and suggestions. 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 Importance of regular nutrition throughout the day discussed.Activity as toleratedContinue with PCP Functional Status Description No Information Available Mental Status Description No Information Available Referrals Description No Information Available
--- OUTSIDE RECORDS SUMMARY | 2019-01-23 08:59 | XMS REPORT | Continuity of Care Document ---
:1970 External Reference #:[id number] Author Name Christopher Ramey DO, MPH Address [address] [place] [address], [address] [address] Care Team Providers Name Role Phone Sumeet Rosas RPA-C. 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 Disease Problems Description No Information Available Social History Type Date Description Comments Sex Unknown Tobacco Use Start: Unknown Patient has never smoked Smoking Status Reviewed: 01/03/19 Patient has never smoked Allergies, Adverse Reactions, [...] 12/02/2018 - 5mg every 6 hours as DO MPH 12/02/2018 Tablets directed chronic pain patient Oxycodone HCL si/2 to 1 by 60tabs Christopher Ramey, 11/03/2018 - 10mg mouth every 8 hours DO, MPH 12/02/2018 Tablets as directed chronic pain patient Immunizations Description No Information Available Vital Signs Date Vital Result Comment 01/03/2019 3:37pm BP Systolic 122 mmHg BP Diastolic 78 mmHg Heart Rate 74 /min Respiratory Rate 18 /min Height 67 inches 5'7" Weight 194.00 lb Pain Level 5 Pain at this time. Pain Level With Medicine 4 on average with meds Pain Level Without Medicine 9 without meds BMI (Body Mass Index) 30.4 kg/m2 12/02/2018 3:15pm BP Systolic 132 mmHg BP Diastolic 88 mmHg Heart Rate 86 /min Respiratory Rate 20 /min Height 67 inches 5'7" Weight 185.00 lb Pain Level 3 Pain at this time. Pain Level With Medicine 3 on average with meds Pain Level Without Medicine 9 without meds BMI (Body Mass Index) 29.0 kg/m2 Results Description No Information Available Procedures Date Code Description Status 12/02/2018 39968 Therapeutic, Prophylactic Or Diagnostic Injection Subq/Im Completed 11/02/2018 69159 Omt 5-6 Body Regions Completed 09/29/2018 78000 Omt 5-6 Body Regions Completed 09/29/2018 05733 Therapeutic, Prophylactic Or Diagnostic Injection Subq/Im Completed 09/02/2018 11236 Omt 5-6 Body Regions Completed 09/02/2018 17860 Therapeutic, Prophylactic Or Diagnostic Injection Subq/Im Completed 08/02/2018 32193 Omt 5-6 Body Regions Completed 08/02/2018 08427 Therapeutic, Prophylactic Or Diagnostic Injection Subq/Im Completed Medical Devices Description No Information Available Encounters Type Date Location Provider Dx Diagnosis Office Visit 12/02/2018 Main Office as Of Christopher Ramey DO, G89.21 Chronic pain due 4:00p 04/23/13 MPH to trauma M54.2 Cervicalgia M54.6 Pain in thoracic spine M54.5 Low back pain M53.3 Sacrococcygeal disorders, not elsewhere classified Z79.891 senior living (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 opiate analgesic R53.83 Other fatigue Office Visit 11/02/2018 4:15p Main Office as Christopher Ramey, G89.21 Chronic [...] and somatic dysfunction of sacral region Z79.891 senior living (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 opiate analgesic 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 [...] and somatic dysfunction of sacral region 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 R53.83 Other fatigue M25.551 Pain in right hip M25.552 Pain in left hip M99.05 Segmental and somatic dysfunction of pelvic region G47.8 Other sleep disorders F41.9 Anxiety disorder, unspecified Office Visit 09/02/2018 4:00p Main Office as Christopher Ramey G89.21 Chronic [...] of sacral region R53.83 Other fatigue 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 M25.551 Pain in right hip M25.552 Pain in left hip M99.05 Segmental and somatic dysfunction of pelvic region Office Visit 08/02/2018 9:00a Main Office as Christopher Ramey, G89.21 Chronic pain due Of 04/23/13 , MPH to trauma 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 junction syndrome [Tietze] M54.2 Cervicalgia M99.01 Segmental and somatic dysfunction of cervical region M54.6 Pain in thoracic spine M99.02 Segmental and somatic dysfunction of thoracic region M54.5 Low back pain M99.03 Segmental and somatic dysfunction of lumbar region M25.551 Pain in right hip M25.552 Pain in left hip R53.83 Other fatigue Z79.891 senior living (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 opiate analgesic M99.05 Segmental and somatic dysfunction of pelvic region M53.3 Sacrococcygeal disorders, not elsewhere classified M99.04 Segmental and somatic dysfunction of sacral region Assessments Date Code Description Provider 01/03/2019 G89.21 Chronic pain due to trauma Tanvir Christopher, DO, MPH 01/03/2019 M54.2 Cervicalgia Christopher Ramey, DO, MPH 01/03/2019 M99.01 Segmental and somatic dysfunction of Ramey, Christopher, DO, MPH cervical region 01/03/2019 M54.6 Pain in thoracic spine Ramey, Christopher, DO, MPH 01/03/2019 M99.02 Segmental and somatic dysfunction of Ramey, Christopher, DO, MPH thoracic region 01/03/2019 M54.5 Low back pain Ramey, Christopher, DO, MPH 01/03/2019 M99.03 Segmental and somatic dysfunction of lumbar Ramey, Christopher, DO, MPH region 01/03/2019 M53.3 Sacrococcygeal disorders, not elsewhere Ramey, Christopher, DO, MPH classified 01/03/2019 M25.551 Pain in right hip Ramey, Christopher, DO, MPH 01/03/2019 M25.552 Pain in left hip Ramey, Christopher, DO, MPH 01/03/2019 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 Ramey, Christopher , DO, MPH 01/03/2019 R53.83 Other fatigue Ramey, Christopher, DO, MPH 01/03/2019 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 junction syndrome [Tietze] Ramey, Christopher, DO, MPH 12/02/2018 G89.21 Chronic pain due to trauma Ramey, Christopher, DO, MPH 12/02/2018 M54.2 Cervicalgia Ramey, Christopher, DO, MPH 12/02/2018 M54.6 Pain in thoracic spine Ramey, Christopher, DO, MPH 12/02/2018 M54.5 Low back pain Ramey, Christopher, DO, MPH 12/02/2018 M53.3 Sacrococcygeal disorders, not elsewhere Ramey, Christopher, DO, MPH classified 12/02/2018 Z79.891 senior living (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 opiate analgesic Ramey, Christopher , DO, MPH 12/02/2018 R53.83 Other fatigue Ramey, Christopher, DO, MPH 11/02/2018 G89.21 Chronic pain due to trauma Ramey, Christopher, DO, MPH 11/02/2018 M54.2 Cervicalgia Ramey, Christopher, DO, MPH 11/02/2018 M99.01 Segmental and somatic dysfunction of Ramey, Christopher, DO, MPH cervical region 11/02/2018 M54.6 Pain in thoracic spine Ramey, Christopher, DO, MPH 11/02/2018 M99.02 Segmental and somatic dysfunction of Ramey, Christopher, DO, MPH thoracic region 11/02/2018 M54.5 Low back pain Ramey, Christopher, DO, MPH 11/02/2018 M99.03 Segmental and somatic dysfunction of lumbar Ramey, Christopher, DO, MPH region 11/02/2018 M53.3 Sacrococcygeal disorders, not elsewhere Ramey, Christopher, DO, MPH classified 11/02/2018 M99.04 Segmental and somatic dysfunction of sacral Ramey, Christopher, DO, MPH region 11/02/2018 Z79.891 senior living (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 opiate analgesic Ramey, Christopher , DO, MPH 11/02/2018 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 junction syndrome [Tietze] Ramey, Christopher, DO, MPH 11/02/2018 M25.551 Pain in right hip Ramey, Christopher, DO, MPH 11/02/2018 M25.552 Pain in left hip Ramey, Christopher, DO, MPH 11/02/2018 M99.05 Segmental and somatic dysfunction of pelvic Ramey, Christopher, DO, MPH region 09/29/2018 G89.21 Chronic pain due to trauma Ramey, Christopher, DO, MPH 09/29/2018 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 junction syndrome [Tietze] Ramey, Christopher, DO, MPH 09/29/2018 M54.2 Cervicalgia Ramey, Christopher, DO, MPH 09/29/2018 M99.01 Segmental and somatic dysfunction of Ramey, Christopher, DO, MPH cervical region 09/29/2018 M54.6 Pain in thoracic spine Ramey, Christopher, DO, MPH 09/29/2018 M99.02 Segmental and somatic dysfunction of Ramey, Christopher, DO, MPH thoracic region 09/29/2018 M54.5 Low back pain Ramey, Christopher, DO, MPH 09/29/2018 M99.03 Segmental and somatic dysfunction of lumbar Ramey, Christopher, DO, MPH region 09/29/2018 M53.3 Sacrococcygeal disorders, not elsewhere Ramey, Christopher, DO, MPH classified 09/29/2018 M99.04 Segmental and somatic dysfunction of sacral Ramey, Christopher, DO, MPH region 09/29/2018 Z79.891 senior living (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 opiate analgesic Ramey, Christopher [...] region 09/02/2018 M54.6 Pain in thoracic spine RameyTodd sanonph, DO, MPH 09/02/2018 M99.02 Segmental and somatic dysfunction of Ramey, Christopher, DO, MPH thoracic region 09/02/2018 M54.5 Low back pain Ramey, Christopher, DO, MPH 09/02/2018 M99.03 Segmental and somatic dysfunction of lumbar Ramey, Christopher, DO, MPH region 09/02/2018 M53.3 Sacrococcygeal disorders, not elsewhere Ramey, Christopher, DO, MPH classified 09/02/2018 M99.04 Segmental and somatic dysfunction of sacral RameyTodd sanonph, DO, MPH region 09/02/2018 R53.83 Other fatigue Ramey, Christopher, DO, MPH 09/02/2018 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 Ramey, Christopher , DO, MPH 09/02/2018 M25.551 Pain in right hip Ramey, Christopher, DO, MPH 09/02/2018 M25.552 Pain in left hip Ramey, Christopher, DO, MPH 09/02/2018 M99.05 Segmental and somatic dysfunction of pelvic RameyTodd sanonph, DO, MPH region 08/02/2018 G89.21 Chronic pain due to trauma Ramey, Christopher, DO, MPH 08/02/2018 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 junction syndrome [Tietze] Ramey, Christopher, DO, MPH 08/02/2018 M54.2 Cervicalgia Ramey, Christopher, DO, MPH 08/02/2018 M99.01 Segmental and somatic dysfunction of Ramey, Christopher, DO, MPH cervical region 08/02/2018 M54.6 Pain in thoracic spine RameyTodd sanonph, DO, MPH 08/02/2018 M99.02 Segmental and somatic dysfunction of Ramey, Christopher, DO, MPH thoracic region 08/02/2018 M54.5 Low back pain Christopher Ramey DO MPH 08/02/2018 M99.03 Segmental and somatic dysfunction of lumbar Christopher Ramey DO MPH region 08/02/2018 M25.551 Pain in right hip Christopher Ramey DO MPH 08/02/2018 M25.552 Pain in left hip Christopher Ramey DO MPH 08/02/2018 R53.83 Other fatigue Christopher Ramey DO MPH 08/02/2018 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 Symptoms and complaints discussed and reviewed today. No significant changes in physical findings. Continue current medical pain management.M54.2 CervicalgiaComments:Chronic. Symptoms and complaints discussed and reviewed today. No significant changes in physical findings. Continue current medical pain management.M99.01 Segmental and somatic dysfunction of cervical regionComments:Chronic. Symptoms and complaints discussed and reviewed today. Somatic dysfunctions noted warrantingOMT. Continue current medical pain management and OMT. [id number]. OMT performed.M54.6 Pain in thoracic spineComments: Chronic.Symptoms and complaints discussed and reviewed today. No significant changes in physical findings. Continue current medical pain management.M99.02 Segmental and somatic dysfunction of thoracic regionComments:Chronic. Symptoms and complaints discussed and reviewed today. Notable somatic dysfunctions noted warranting OMT. Continue current medical pain management and OMT. [id number]. OMT performed after evaluation. HVLA.M54.5 Low back painComments:Chronic. Symptoms and complaints discussed and reviewed today.No changes in physical findings. Patient is stable and comfortable when current medical therapy is rendered.M99.03 Segmental and somatic dysfunction of lumbar regionComments: Chronic. Symptoms and complaints discussed and reviewed today. Lumbar somatic dysfunctions noted warranting OMT. Continue current medical pain management and OMT. [id number]. OMT performed after evaluation. HVLA.M53.3 Sacrococcygeal disorders, not elsewhere classifiedComments:Chronic. Symptoms and complaints discussed and reviewed today. Notable sacral somatic dysfunctions warranting OMT. Patient is stable and comfortable with current medical therapy.M25.551 Pain in right hipComments:Chronic. Symptoms and complaints discussed and reviewed today. No significant changes in physical findings. Continue current medical pain management.M25.552 Pain in left hipComments:Chronic. Symptoms and complaints discussed and reviewed today. No significant changes in physical findings. Continue current medical pain management.Z79.891 senior living (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 opiate analgesicNew Labs:Urine Drug Screen, Ordered: 01/03/19Comments: Urine drug screen sample taken today to monitor opiate use and to monitor use of illicit substances.Will discuss results at next appointment.The following tests were ordered:6 AM, AMPH, BENTLEY, HI, BUP, CARIS, COCM, ETG, FENT, MCSHSG, OPI, OXY, PCP, TAPEN, XTSY, ZOLP. A urine drug test (UDT) was ordered for this patient and collected on site today. Creatinine has been ordered as well for specimen validity, not for kidney function. Preliminary UDT results are not final and should not be used to determine patient care or plan of treatment. Initially a qualitative immunoassay screen will bedone. Any inconsistent or positive findings will be [...] injection-B12 document for lot number and expiration date.)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 junction syndrome [Tietze]Comments: Continue opioid pain managementSide effects discussed; anticipatory guidance given. Patient clearly understands and agrees with all medical treatments and suggestions. All medicines prescribed are adequate and appropriate for this patient's complaint of pain, medical history, physical, and personal goals.Goals of Treatment are to provide adequate and appropriate multidisciplinary medical pain management to increase/ maintain patient's quality of life and functionality while maintaining satisfactory side effect profile and minimizing nursing home end-organ damage. Activity as toleratedContinue with PCPAllComments:Continue current medical pain management; injection therapy, osteopathic [...] while maintaining satisfactory side effect profile andminimizing remote computer terminal operator end-organ damage. Importance of regular nutrition throughout the day discussed.Activity as toleratedContinue with PCP Functional Status Description No Information Available Mental Status Description No Information Available Referrals Description No Information Available
[2019-01-23 09:06] VITALS: BP 111/76
--- NOTE | 2019-01-23 10:23 | UC ---
Throat Pain/Nasal Ramy HPI - HPI Summary HPI Summary: Patient is a 48yo female presenting with tick bite that she woke up with this morning. Patient states tick was not there when she went to sleep. She removed it before coming here. Denies tenderness, drainage, redness and warmth. Denies fever, chills, n/v. Patient also noted nasal congestion, sinus tenderness, facial pressure, and ear pressure x1 week. Notes intermittent sore throat. Denies cough, SOB, and wheezing. - History of Current Complaint Chief Complaint: UCGeneralIllness Stated Complaint: TICK Hx Obtained From: Patient Pain Intensity: 0 Pain Scale Used: 0-10 Numeric - Allergies/Home Medications Allergies/Adverse Reactions: Allergies Allergy/AdvReac Type Severity Reaction Status Date / Time amoxicillin [From Augmentin] Allergy See Comment Verified 01/23/19 08:58 clavulanic acid Allergy See Comment Verified 01/23/19 08:58 [From Augmentin] gluten Allergy See Comment Verified 01/23/19 08:58 Sulfa (Sulfonamide Allergy Rash Verified 01/23/19 08:58 Antibiotics) Home Medications: Home Medications Dm/PE/Acetaminophen/Doxylamine [Cold Multi-Symptom Warmin] 1 liq PO ONCE [History Confirmed 01/23/19] PMH/Surg Hx/FS Hx/Imm Hx - Surgical History Surgical History: Yes Surgery Procedure, Year, and Place: C-SECT X 2 1990, 96, [facility] [place]. LEFT KNEE - ARTHROSCOPIC 2019, [facility] [place],1989. ABD LAP- EXPLORATORY & Rt OOPHRECTOMY. several surgerys form ovarian cyst and endometriosis - Family History Known Family History: Positive: None - reviewed and noncontributory , Unknown - Pt is adopted - Social History Alcohol Use: Rare Alcohol Amount: 1 per month Substance Use Type: None Smoking Status (MU): Never Smoked Tobacco Have You Smoked in the Last Year: No - Immunization History Most Recent Influenza Vaccination: 2016 Most Recent Tetanus Shot: unsure Most Recent Pneumonia Vaccination: 2009 Review of Systems All Other Systems Reviewed And Are Negative: No Constitutional: Positive: Negative. Negative: Fever, Chills Skin: Positive: Other - tick bite of neck ENT: Positive: Sore Throat, Ear Ache, Sinus Congestion, Sinus Pain/Tenderness Respiratory: Positive: Negative Cardiovascular: Positive: Negative Gastrointestinal: Positive: Negative. Negative: Vomiting, Nausea Neurological: Positive: Headache Physical Exam Triage Information Reviewed: Yes Appearance: Well-Appearing, No Pain Distress, Well-Nourished Vital Signs: Initial Vital Signs Temp 98.1 F 01/23/19 09:00 Pulse 74 01/23/19 09:00 Resp 18 01/23/19 09:00 BP 111/76 01/23/19 09:00 Pulse Ox 98 01/23/19 09:00 Vital Signs Reviewed: Yes Eyes: Positive: Conjunctiva Clear ENT: Positive: Hearing grossly normal, Nasal congestion, TMs normal, Sinus tenderness - maxillary, Uvula midline. Negative: Pharyngeal erythema, Nasal drainage, Tonsillar swelling, Tonsillar exudate Neck exam: Normal Neck: Positive: Supple, Nontender, No Lymphadenopathy Respiratory Exam: Normal Respiratory: Positive: Lungs clear, Normal breath sounds, No respiratory distress Cardiovascular Exam: Normal Cardiovascular: Positive: RRR Neurological: Positive: Alert Psychological: Positive: Age Appropriate Behavior Skin: Positive: Other - tick bite noted on R anterior neck. no sign of infection. tick not intact Throat Pain/Nasal Course/Dx - Course Course Of Treatment: I treated with doxy for sinus infection and educated on s/s of infected tick bite. No prophylactic tx for Lyme given since it only attached overnight. Instructed to follow up with PCP if symptoms persist or worsen. Patient voiced understanding and agreed with the treatment plan. - Differential Dx/Diagnosis Provider Diagnosis: Tick bite of neck, Sinusitis Discharge ED - Sign-Out/Discharge Documenting (check all that apply): Patient Departure All imaging exams completed and their final reports reviewed: No Studies - Discharge Plan Condition: Stable Disposition: HOME Prescriptions: DOXYcycline CAP(*) [DOXYcycline 100MG CAP(*)] 100 mg PO BID #14 cap Patient Education Materials: Sinusitis (ED), Tick Bite (ED) Referrals: Ovidio Duncan MD [Primary Care Provider] - If Needed Additional Instructions: As discussed, take Doxycycline for the treatment of your sinusitis. You may use Flonase as directed for symptomatic relief. You may take ibuprofen as directed for pain relief. Get plenty of rest and fluids. Follow up with your primary care doctor if your symptoms worsen or do not resolve within 7 days. As discussed, no treatment is required for your tick bite. Monitor the area over the next few days for signs of infection. Return or go to the Emergency Room if you experience fever, nausea and vomiting , or increasing pain, redness, and warmth of the area. - Billing Disposition and Condition Condition: STABLE Disposition: Home - Attestation Statements Provider Attestation: Per institutional requirements, I have reviewed the chart, however, I was not consulted specifically or made aware of this patient by the midlevel provider. I did not personally evaluate, interact with , or disposition this patient.
== END 2019-01-23 09:51 | disposition home or self-care (01) ==
LOC: UCEAST 08:54
DX: S10.96XA Insect bite of unspecified part of neck, initial encounter (principal); J32.9 Chronic sinusitis, unspecified; Z88.0 Allergy status to penicillin; Z88.2 Allergy status to sulfonamides; Z91.018 Allergy to other foods; W57.XXXA Bitten or stung by nonvenomous insect and other nonvenomous arthropods, initial encounter; Y92.9 Unspecified place or not applicable
CPT/HCPCS: 99212; G0463

== ENCOUNTER 2019-02-25 10:31 | Emergency (ER) | payer BC ==
--- OUTSIDE RECORDS SUMMARY | 2019-02-25 10:39 | XMS REPORT | Continuity of Care Document ---
:1970 External Reference #:[id number] Author Name Christopher Ramey DO, MPH Address [address] [place] [address], [address] [id number] Care Team Providers Name Role Phone Sumeet Rosas RPA-C. - Physician Care Team Information Integration Assistant [phone] Daly M.D. - Cardiovascular Care Team Information Integration Assistant Disease Problems Description No Information Available Social History Type Date Description Comments Sex Unknown Tobacco Use Start: Unknown Patient has never smoked Smoking Status Reviewed: 02/01/19 Patient has never smoked Allergies, Adverse Reactions, [...] Available Vital Signs Date Vital Result Comment 02/01/2019 3:51pm BP Systolic 128 mmHg BP Diastolic 80 mmHg Heart Rate 84 /min Respiratory Rate 20 /min Height 67 inches 5'7" Weight 194.00 lb Pain Level 6 Pain at this time. Pain Level With Medicine 5 on average with meds Pain Level Without Medicine 9 without meds BMI (Body Mass Index) 30.4 kg/m2 01/03/2019 3:37pm BP Systolic 122 mmHg BP Diastolic 78 mmHg Heart Rate 74 /min Respiratory Rate 18 /min Height 67 inches 5'7" Weight 194.00 lb Pain Level 5 Pain at this time. Pain Level With Medicine 4 on average with meds Pain Level Without Medicine 9 without meds BMI (Body Mass Index) 30.4 kg/m2 Results Description No Information Available Procedures Date Code Description Status 01/03/2019 29161 Omt 3-4 Body Regions Completed 01/03/2019 04268 Therapeutic, Prophylactic Or Diagnostic Injection Subq/Im Completed 12/02/2018 85074 Therapeutic, Prophylactic Or Diagnostic Injection Subq/Im Completed 11/02/2018 58845 Omt 5-6 Body Regions Completed 09/29/2018 99066 Omt 5-6 Body Regions Completed 09/29/2018 44217 Therapeutic, Prophylactic Or Diagnostic Injection Subq/Im Completed 09/02/2018 01867 Omt 5-6 Body Regions Completed 09/02/2018 84358 Therapeutic, Prophylactic Or Diagnostic Injection Subq/Im Completed Medical Devices Description No Information Available Encounters Type Date Location Provider Dx Diagnosis Office Visit 01/03/2019 Main Office as Of Christopher Ramey DO, G89.21 Chronic pain due 4:00p 04/23/13 MPH to trauma M54.2 Cervicalgia M99.01 Segmental and somatic dysfunction of cervical region M54.6 Pain in thoracic spine M99.02 Segmental and somatic dysfunction of thoracic region M54.5 Low back pain M99.03 Segmental and somatic dysfunction of lumbar region M53.3 Sacrococcygeal disorders, not elsewhere classified M25.551 Pain in right hip M25.552 Pain in left hip 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 R53.83 Other fatigue 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 junction syndrome [Tietze] Office Visit 12/02/2018 4:00p Main Office as Christopher Ramey G89.21 Chronic pain due Of 04/23/13 DO, MPH to trauma M54.2 Cervicalgia M54.6 Pain in thoracic spine M54.5 Low back pain M53.3 Sacrococcygeal disorders, not elsewhere classified Z79.891 snf (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 opiate analgesic R53.83 Other fatigue Office Visit 11/02/2018 4:15p Main Office as Christopher Ramey G89.21 [...] and somatic dysfunction of sacral region Z79.891 snf (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 opiate analgesic 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 [...] and somatic dysfunction of sacral region 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 R53.83 Other [...] of sacral region R53.83 Other fatigue Z79.891 snf (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 opiate analgesic M25.551 Pain in right hip M25.552 Pain in left hip M99.05 Segmental and somatic dysfunction of pelvic region Assessments Date Code Description Provider 02/01/2019 G89.21 Chronic pain due to trauma Ramey, Christopher, DO, MPH 02/01/2019 M54.2 Cervicalgia Ramye, Christopher, DO, MPH 02/01/2019 M99.01 Segmental and somatic dysfunction of Ramey, Christopher, DO, MPH cervical region 02/01/2019 M54.5 Low back pain Ramey, Christopher, DO, MPH 02/01/2019 M99.03 Segmental and somatic dysfunction of lumbar Ramey, Christopher, DO, MPH region 02/01/2019 M53.3 Sacrococcygeal disorders, not elsewhere Ramey, Christopher, DO, MPH classified 02/01/2019 M99.04 Segmental and somatic dysfunction of sacral Ramey, Christopher, DO, MPH region 02/01/2019 M25.551 Pain in right hip Ramey, Christopher, DO, MPH 02/01/2019 M25.552 Pain in left hip Ramey, Christopher, DO, MPH 02/01/2019 M99.05 Segmental and somatic dysfunction of pelvic Ramey, Christopher, DO, MPH region 02/01/2019 R53.83 Other fatigue Ramey, Christopher, DO, MPH 02/01/2019 Z79.891 snf (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 opiate analgesic Ramey, Christopher , DO, MPH 02/01/2019 M54.6 Pain in thoracic spine Ramey, Christopher, DO, MPH 02/01/2019 M99.02 Segmental and somatic dysfunction of Ramey, Christopher, DO, MPH thoracic region 01/03/2019 G89.21 Chronic pain due to trauma Ramey, Christopher, DO, MPH 01/03/2019 M54.2 Cervicalgia Ramey, Christopher, DO, MPH 01/03/2019 M99.01 Segmental and somatic [...] hip Ramey, Christopher, DO, MPH 01/03/2019 Z79.891 snf (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 opiate analgesic Ramey, Christopher [...] Ramey, Christopher, DO, MPH classified 12/02/2018 Z79.891 snf (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 opiate analgesic Ramey, Christopher [...] Ramey, Christopher, DO, MPH region 11/02/2018 Z79.891 snf (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 opiate analgesic Ramey, Christopher [...] Ramey, Christopher, DO, MPH region 09/29/2018 Z79.891 snf (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 opiate analgesic Ramey, Christopher [...] DO, MPH 09/29/2018 F41.9 Anxiety disorder, unspecified Raemy, Christopher, DO, MPH 09/02/2018 G89.21 Chronic pain [...] region 09/02/2018 M53.3 Sacrococcygeal disorders, not elsewhere Christopher Ramey DO MPH classified 09/02/2018 M99.04 Segmental and somatic dysfunction of sacral Christopher Ramey DO, MPH region 09/02/2018 R53.83 Other fatigue Christopher Ramey DO MPH 09/02/2018 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 Symptoms and [...] Continue current medical pain management and OMT. [id number]. OMT performed.M54.5 Low back painComments:Chronic. Symptoms and complaints discussed and reviewed today.No changes in physical findings. Patient is stable and comfortable when current medical therapy is rendered.M99.03 Segmental and somatic dysfunction of lumbar regionComments: Chronic. Symptoms and complaints discussed and reviewed today. Lumbar somatic dysfunctions noted warranting OMT. Continue current medical pain management and OMT. [id number]. OMT performed after evaluation. HVLA.M53.3 Sacrococcygeal disorders, not elsewhere classifiedComments:Chronic. Symptoms and complaints discussed and reviewed today. Notable sacral somatic dysfunctions warranting OMT. Patient is stable and comfortable with current medical therapy.M99.04 Segmental and somatic dysfunction of sacral regionComments:Chronic. Symptoms and complaints discussed and reviewed today. Sacral somatic dysfunctions noted warranting OMT. Continue current medical pain management and OMT. Sacral Torsion. OMT performed after evaluation. HVLA.M25.551 Pain in right hipComments: Chronic. Symptoms and complaints discussed and reviewed today. No significant changes in physical findings. Continue current medical pain management.M25.552 Pain in left hipComments:Chronic. Symptoms and complaints discussed and reviewed today. No significant changes in physical findings. Continue current medical pain management.M99.05 Segmental and somatic dysfunction of pelvic regionComments:Chronic. Symptoms and complaints discussed and reviewed today. Pelvic somatic dysfunctions noted warranting OMT. Continue current medical pain management and OMT. Pelvic Shear. OMT performed. MFR. HVLA.R53.83 Other fatigueComments:Symptoms and complaints discussed and reviewed today. No significant changes in physical findings. Continue current medical pain management. B12 injection administered after patient evaluated. 1ml IM for fatigue. (See Consent for injection-B12 document for lot number and expiration date.)Z79.891 snf (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 opiate analgesicNew Labs:Urine Drug Screen, Ordered: 02/01/19Comments:Urine drug screen sample taken today to monitor [...] controlled substances and is considered standard of care.M54.6 Pain in thoracic spineComments: Chronic.Symptoms and complaints discussed and reviewed today. No significant changes in physical findings. Continue current medical pain management.M99.02 Segmental and somatic dysfunction of thoracic regionComments:Chronic. Symptoms and complaints discussed and reviewed today. Notable somatic dysfunctions noted warranting OMT. Continue current medical pain management and OMT. [id number]. OMT performed after evaluation. 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 Importance of regular nutrition throughout the day discussed.Activity as toleratedContinue with PCP Functional Status Description No Information Available Mental Status Description No Information Available Referrals Description No Information Available
[2019-02-25 10:49] VITALS: BP 125/60
--- NOTE | 2019-02-25 11:02 | ED ---
Throat Pain/Nasal Congestion - HPI Summary HPI Summary: 48 year old female presents sore throat and sinus congestion for the past 4 days. She denies any fevers. States she has ear pain in the right ear. She states she also has an occasional cough. She states that she has history of costochondritis as she had CPR many years ago. She states she is concerned that she will get pneumonia. She denies a history of asthma. Denies any chest pain or shortness of breath currently. - History of Current Complaint Chief Complaint: UCGeneralIllness Time Seen by Provider: 02/25/19 10:50 - Allergies/Home Medications Allergies/Adverse Reactions: Allergies Allergy/AdvReac Type Severity Reaction Status Date / Time amoxicillin [From Augmentin] Allergy See Comment Verified 02/25/19 10:42 clavulanic acid Allergy See Comment Verified 02/25/19 10:42 [From Augmentin] gluten Allergy See Comment Verified 02/25/19 10:42 Sulfa (Sulfonamide Allergy Rash Verified 02/25/19 10:42 Antibiotics) PMH/Surg Hx/FS Hx/Imm Hx Endocrine/Hematology History: Denies: Hx Diabetes, Hx Systemic Lupus Erythematosus, Hx Thyroid Disease Cardiovascular History: Denies: Hx Congestive Heart Failure, Hx Hypertension, Hx Pacemaker/ICD, Other Cardiovascular Problems/Disorders Respiratory History: Denies: Hx Asthma, Hx Chronic Obstructive Pulmonary Disease (COPD) GI History: Reports: Other GI Disorders - ciliac disease Denies: Hx Ulcer History: Reports: Other Problems/Disorders - Hx ovarian cysts Denies: Hx Dialysis, Hx Renal Disease Musculoskeletal History: Reports: Other Musculoskeletal History - 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 Hx Chemotherapy: No - Surgical History Surgery Procedure, Year, and Place: C-SECT X 2 1990, 96, [facility] [place]. LEFT KNEE - ARTHROSCOPIC 2018, [facility] [place],1988. ABD LAP- EXPLORATORY & Rt OOPHRECTOMY. several surgerys form ovarian cyst and endometriosis Hx Anesthesia Reactions: Yes - pt arrested after surgery 10 yrs ago - Immunization History Date of Tetanus Vaccine: unk Date of Influenza Vaccine: unk Infectious Disease History: No Infectious Disease History: Denies: Hx Clostridium Difficile, Hx Hepatitis, Hx Human Immunodeficiency Virus (HIV), Hx of Known/Suspected MRSA, Hx Shingles, Hx Tuberculosis, Hx Known/ Suspected VRE, Hx Known/Suspected VRSA, History Other Infectious Disease, Traveled Outside the [place] in Last 30 Days - Family History Known Family History: Positive: None - reviewed and noncontributory , Unknown - Pt is adopted - Social History Alcohol Use: Rare Alcohol Amount: 1 per month Substance Use Type: Reports: None Smoking Status (MU): Never Smoked Tobacco Have You Smoked in the Last Year: No Review of Systems Negative: Fever Positive: Sore Throat, Ear Ache, Nasal Discharge Negative: Chest Pain Positive: Cough. Negative: Shortness Of Breath All Other Systems Reviewed And Are Negative: Yes Physical Exam Triage Information Reviewed: Yes Vital Signs On Initial Exam: Initial Vitals Temp Pulse Resp BP Pulse Ox 97.7 F 85 18 125/60 99 02/25/19 10:44 02/25/19 10:44 02/25/19 10:44 02/25/19 10:44 02/25/19 10:44 Vital Signs Reviewed: Yes Appearance: Positive: Well-Appearing Skin: Positive: Warm, Dry Head/Face: Positive: Normal Head/Face Inspection Eyes: Positive: Normal, EOMI, BAY, Conjunctiva Clear ENT: Positive: Normal ENT inspection, Pharyngeal erythema, TMs normal - fluid behind ears, Uvula midline, Other - soft palate symmetric. Negative: Tonsillar swelling, Tonsillar exudate, Trismus, Muffled voice, Sinus tenderness Respiratory/Lung Sounds: Positive: Clear to Auscultation, Breath Sounds Present Cardiovascular: Positive: Normal, RRR Musculoskeletal: Positive: Normal Neurological: Positive: Normal Psychiatric: Positive: Normal Diagnostics - Vital Signs Vital Signs Temp Pulse Resp BP Pulse Ox 02/25/19 10:44 97.7 F 85 18 125/60 99 - Laboratory Lab Statement: Any lab studies that have been ordered have been reviewed, and results considered in the medical decision making process. EENT Course/Dx - Course Course Of Treatment: 48 year old female presents sore throat and sinus congestion for the past 4 days. She denies any fevers. States she has ear pain in the right ear. She states she also has an occasional cough. She states that she has history of costochondritis as she had CPR many years ago. She states she is concerned that she will get pneumonia. She denies a history of asthma. Denies any chest pain or shortness of breath currently. On exam TMs normal. Pharynx erythematous uvula midline. Lungs clear to auscultation. according to the centor criteria does not need testing for strep. Discussed that if sinus congestion continues for 3 more days with give prescription for doxycycline to treat as sinus infection at that time. Told otherwise treat with supportive care. told to follow with primary. Patient understands agrees with plan. - Differential Diagnoses Differential Diagnoses: Pharyngitis, Sinusitis, URI/Bronchitis - Diagnoses Provider Diagnoses: Upper respiratory infection Discharge ED - Sign-Out/Discharge Documenting (check all that apply): Patient Departure All imaging exams completed and their final reports reviewed: No Studies - Discharge Plan Condition: Good Disposition: HOME Prescriptions: DOXYcycline CAP(*) [DOXYcycline 100MG CAP(*)] 100 mg PO BID #14 cap Patient Education Materials: Upper Respiratory Infection (ED) Referrals: Ovidio Duncan MD [Primary Care Provider] - Additional Instructions: Use saline spray in nose as much as needed Take antibiotic in 3 days if no improvement, take twice a day for 7 days Take Tylenol or ibuprofen every 6 hours for pain Follow up with primary in 5 days Return to ED if develop any new or worsening symptoms - Billing Disposition and Condition Condition: GOOD Disposition: Home
== END 2019-02-25 11:06 | disposition home or self-care (01) ==
LOC: UCEAST 10:31
DX: J06.9 Acute upper respiratory infection, unspecified (principal); H92.01 Otalgia, right ear; 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 junction syndrome [Tietze]; Z88.0 Allergy status to penicillin; Z88.2 Allergy status to sulfonamides; Z91.09 Other allergy status, other than to drugs and biological substances
CPT/HCPCS: 99212; G0463